=== PATIENT | male | born 1975 | race Caucasian/White ===

== ENCOUNTER 2019-05-27 08:29 | Outpatient (RCR) | payer OTHER, SELFPAY ==
--- NOTE | 2019-05-27 17:08 | PT.OIE ---
Current Diagnoses Pain in left elbow (05/27/19) Visit Care Team Role Provider Type James Hernadez MD Attending Provider Non-Staff Family Provider Primary Care Provider Specialty: Medical Address: [address] [place] [address], [phone] Email: Physical Therapy Initial Evaluation PT-OP-A Visit Information Start: 05/24/19 17:37 Freq: Status: Active Protocol: Document 05/27/19 09:05 LRN (Rec: 05/27/19 10:10 LRN [id number]) Out-Patient Physical Therapy Visit Information Visit Information Visit Type Initial Evaluation Visit Start Time 09:05 Visit Stop Time 09:53 Total Visit Minutes 48 Visit Number 1 Number of HUMAN RESOURCES EXECUTIVE Visits 0 Evaluation Information Evaluation Date 05/27/19 Precautions Precautions None PT-OP-B Current Condition Start: 05/24/19 17:37 Freq: Status: Active Protocol: Document 05/27/19 09:05 LRN (Rec: 05/27/19 10:10 LRN [id number]) Current Condition History of Current Condition Onset Date 1 month ago Current Complaints L lateral elbow: chronic L elbow pain, can't get comfortable at night History of Current Condition Tennis elbow a year ago for 5- 6 months, it went away on its own, then one month ago was tightening a bolt with fingertips and felt a shock in the L lateral elbow and persistent paint that was similar to last episode. 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 Pain is intermittent in nature. His pain is worse at night and causes aching in any position he puts his arm; therefore he is constantly moving the arm to be comfortable. He wakes 3 -4 times a night. Prior Treatments and Tests Not taking anything. Future Testing and Treatments Planned Can't remember the follow up, has an option of doing an injection. Treatment Goals Patient/Caregiver Goals Goal is to get a wrist strap and to alleviate the pain. 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 Current Functional Impairments (Reported) Functional Limitations- ADL's Limited with gripping, sleeping, dressing (socks, pants) . Pain mainly using fingers when gripping. 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 Personal Factors Other Personal Factors That May Effect Construction work. Therapy/Recovery Farm work. PT-OP-C Subjective Start: 05/24/19 17:37 Freq: Status: Active Protocol: Document 05/27/19 09:05 LRN (Rec: 05/27/19 10:33 LRN [id number]) Patient Questionnaires Upper Extremity Functional Scale UEFS Score 45.45 Upper Extremity Functional Scale 40 to 59% Impaired (Score 32- Impairment 47) OP-PT Pain Assessment Pain Assessment Grid Paper Pain Assessment Grid Completed Yes Location L lateral epicondyle Pain Location Details L lateral epicondyle and wrist extensor muscle bellies Intensity 4 Scale Used Numeric (1 - 10) Description Aching,Sharp,Stabbing Description- Other Bruise feeling Frequency Intermittent Pain Duration Variable Radiating Location Into upper forearm muscles Pain Aggravating Factors ADL's,Activity,Lifting Other Pain Aggravating Factors Static prolonged positioning. Other Pain Alleviating Factors Moving out of static position. PT-OP-H Neuro Start: 05/24/19 17:37 Freq: Status: Active Protocol: Document 05/27/19 09:05 LRN (Rec: 05/27/19 10:33 LRN [id number]) Sensation Evaluation Gross Sensation Gross Sensation WNL PT-OP-J Posture/Palpation/Skin Start: 05/24/19 17:37 Freq: Status: Active Protocol: Document 05/27/19 09:05 LRN (Rec: 05/27/19 10:33 LRN [id number]) Posture Evaluation Comments Posture Comments Atrophy of the non-dominant L forearm and thenar eminence is mildly visible. Palpation Assessment Location L cervical paraspinals Palpation Location L cervical paraspinals Palpation Findings Soft Tissue Tightness L Wrist extensor tendons Palpation Location Proximal wrist extensor tendons Palpation Findings Tenderness L lateral epicondyle Palpation Location L lateral epicondyle Palpation Findings Tenderness PT-OP-K Range of Motion Start: 05/24/19 17:37 Freq: Status: Active Protocol: Document 05/27/19 09:05 LRN (Rec: 05/27/19 15:28 LRN [id number]) Cervical Spine Range of Motion Cervical Spine Active Percentage Testing Position Sitting Comments All Cervical ROM is WNL without pain. Elbow/Forearm Range of Motion Elbow/Forearm Right Active Elbow/Forearm ROM WFL Yes Left Active Elbow/Forearm ROM WFL Yes Wrist Goniometric Range of Motion Wrist Right Flexion Active (degrees) 75 Extension Active (degrees) 60 Left Flexion Active (degrees) 75 Extension Active (degrees) 58 ROM Limitations Comments Ulnar Deviation and Radial Deviation are WNL without pain . Finger Goniometric Range of Motion Finger ROM Limitations Comments No mobility limitations, but pain felt at end range of motion with finger flexion at DIP and PIP joints. PT-OP-L Special Tests Start: 05/24/19 17:37 Freq: Status: Active Protocol: Document 05/27/19 09:05 LRN (Rec: 05/27/19 15:28 LRN [id number]) Special Tests Cervical Spine Special Tests Foraminal Compression Test Results negative Elbow Special Tests Lateral Epicondylitis Flexed Test Results L elbow: No pain elicited Lateral Epicondylitis Extended Test Results L elbow: Pain elicited. PT-OP-M Strength Start: 05/24/19 17:37 Freq: Status: Active Protocol: Document 05/27/19 09:05 LRN (Rec: 05/27/19 15:28 LRN [id number]) Elbow/Forearm Strength Elbow and Forearm Manual Muscle Testing Right Reason Not Measured WFL Left Reason Not Measured WFL Wrist Strength Wrist Manual Muscle Testing Right Reason Not Measured WFL Left Reason Not Measured WFL Finger/Thumb Strength Finger Manual Muscle Testing Thumb Reason Not Measured WFL Left Second Reason Not Measured WFL Left Third Reason Not Measured WFL Left Fourth Flexion (fingers C8) 3+ Fair+ Extension (thumb C8) 4+ Good+ Adduction 3+ Fair+ Abduction (fingers T1) 5 Normal Left Fifth Flexion (fingers C8) 3+ Fair+ Extension (thumb C8) 4+ Good+ Adduction 3+ Fair+ Abduction (fingers T1) 5 Normal Hand Parking Garage Manager/Pinch Strength Hand Dominance Hand Dominance Right Hand Strength Right Parking Garage Manager (lbs) 132 Comments Parking Garage Manager Strength Norm for 40-44 yr olds is 117# Pinch Norm for 40-44 yr olds is 11.7 kg Tip Pinch (kgs): Right 4th digit: 4 3rd digit: 3 2nd digit: 7 Left Parking Garage Manager (lbs) 70 Comments Parking Garage Manager strength above is painfree. Max grievance coordinator strength is 92.6# Norm for 40-44 yr olds is 113# Pinch Norm for 40-44 yr olds is 11.4 kg Tip Pinch (kgs): Left 4th digit: 3 3rd digit: 3 2nd digit: 9.8 Pinch Norm for 40-44 yr olds is PT-OP-Q Treatments Start: 05/24/19 17:37 Freq: Status: Active Protocol: Document 05/27/19 09:05 LRN (Rec: 05/27/19 15:28 LRN [id number]) Self-Care/Home Management Treatment Education Patient Education Pain Management Activities Self-Care/Home Management Activities Discussed self care of L elbow and routine. Rest, stretch, ice, use of elbow strap when working and ice afterwards. Goal is to be painfree. PT-OP-R Modalities Start: 05/24/19 17:37 Freq: Status: Active Protocol: Document 05/27/19 09:05 LRN (Rec: 05/27/19 15:28 LRN [id number]) Other Unlisted Modality Treatment Laser Name of Modality Laser Duration (Minutes) 1 Body Position Sitting Parameters Muscle/tendons: Chronic pulsed PT-OP-T Assessment and Plan Start: 05/24/19 17:37 Freq: Status: Active Protocol: Document 05/27/19 09:05 LRN (Rec: 05/27/19 15:28 LRN [id number]) Physical Therapy Assessment Rehab Potential Rehabilitation Potential Good Evaluation Complexity Number of Personal Factors/Comorbidities 1-2 Number of Body Systems Impaired 4 or More Clinical Presentation at Evaluation Evolving Impairments Impairments Activity Tolerance,Pain,Soft Tissue Mobility,Strength Goals Four Impairment Functionally limited per UE Quick DASH score of 45.45 Intermediate Goal (LTG) Pt will show improved function per improved UE Quick DASH score no greater than 25. LTG Duration 07/22/19 Three Impairment Interrupted sleep at night 3-4 times a night. Cellophane Wrapping Examiner Goal (LTG) Pt will be able to sleep through the night without pain . LTG Duration 07/22/19 Two Impairment Intermittent pain rated 4/10. Short Term Goal (STG) Decrease pain to 0/10 with AROM of wrist and fingers. STG Duration 06/28/19 Intermediate Goal (LTG) Pt will be able to work without pain wearing a forearm strap. LTG Duration 07/22/19 One Impairment Lacks appropriate self care program. Intermediate Goal (LTG) Pt will be independent in a self care HEP. LTG Duration 07/22/19 Assessment Summary Assessment Pt presents with L lateral epicondylitis and soft tissue dysfunction of the L wrist extensors with decreased strength and tolerance to activity and use. The pt responded well to protective pressure applied across the wrist extensor muscle bellies; therefore a forearm wrist strap would be beneficial for the pt in progressing his healing. He does not appear to have cervical involvement but the pt did report occasional pain within the last month in the cervical spine; therefore this will be monitored. The pt will benefit from skilled physical therapy 2x/week and one weekly session at 3x/week for iontophoresis treatment if you agree, to eliminate pain, improve painfree mobility and strength and for placement on a self care HEP. Iontophoresis will start once the plan of care is returned. Physical Therapy Plan Frequency and Duration Frequency of Treatment 3x/Week Plan of Care Start Date 05/27/19 Plan of Care End Date 07/22/19 Therapeutic Interventions Therapeutic Interventions Home Exercise Program,Joint Mobilizations,Manual Therapy, Patient/Caregiver Education, Self-Care/Home Management,Soft Tissue Mobilization,Taping, Therapeutic Exercises Modalities Cold Pack/Ice Massage,Hot Packs,Iontophoresis,Ultrasound Other Therapeutic Interventions Iontophoresis with 4mg/mL of Dexamethasone w/Sodium Phosphate. Next Visit Focus/Plan Next Note Type Treatment Note Next Visit Plan Assess response to laser therapy, check upper limb tension, start Iontophoresis for 3x/week for the first week , then 2x/week afterwards when POC has returned. Start Ultrasound, STM, wrist/elbow ROM, end K-tape. Initiate strengthening for painfree elbow, wrist, finger exercises . End cryotherapy.
--- NOTE | 2019-08-02 17:14 | PT.OPDS ---
Current Diagnoses Pain in left elbow (05/27/19) Visit Care Team Role Provider Type James Hernadze MD Attending Provider Non-Staff Family Provider Primary Care Provider Specialty: Medical Address: [address] [place] [address], [phone] Email: Visit Number Visit Number 1 Discharge Summary PT-OP-B Current Condition Start: 05/24/19 17:37 Freq: Status: Active Protocol: Document 05/27/19 09:05 LRN (Rec: 05/27/19 10:10 LRN [id number]) Current Condition History of Current Condition Onset Date 1 month ago Current Complaints L lateral elbow: chronic L elbow pain, can't get comfortable at night History of Current Condition Tennis elbow a year ago for 5- 6 months, it went away on its own, then one month ago was tightening a bolt with fingertips and felt a shock in the L lateral elbow and persistent paint that was similar to last episode. 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 Pain is intermittent in nature. His pain is worse at night and causes aching in any position he puts his arm; therefore he is constantly moving the arm to be comfortable. He wakes 3 -4 times a night. Prior Treatments and Tests Not taking anything. Future Testing and Treatments Planned Can't remember the follow up, has an option of doing an injection. Treatment Goals Patient/Caregiver Goals Goal is to get a wrist strap and to alleviate the pain. 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 Current Functional Impairments (Reported) Functional Limitations- ADL's Limited with gripping, sleeping, dressing (socks, pants) . Pain mainly using fingers when gripping. 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 Personal Factors Other Personal Factors That May Effect Construction work. Therapy/Recovery Farm work. PT-OP-T Assessment and Plan Start: 05/24/19 17:37 Freq: Status: Active Protocol: Document 08/02/19 17:11 LRN (Rec: 08/02/19 17:14 LRN [id number]) Physical Therapy Assessment Goals Four Impairment Functionally limited per UE Quick DASH score of 45.45 Fdc Goal (LTG) Pt will show improved function per improved UE Quick DASH score no greater than 25. LTG Duration 07/22/19 Three Impairment Interrupted sleep at night 3-4 times a night. Audio Recording Engineer Goal (LTG) Pt will be able to sleep through the night without pain . LTG Duration 07/22/19 Two Impairment Intermittent pain rated 4/10. Short Term Goal (STG) Decrease pain to 0/10 with AROM of wrist and fingers. STG Duration 06/28/19 Audio Recording Engineer Goal (LTG) Pt will be able to work without pain wearing a forearm strap. LTG Duration 07/22/19 One Impairment Lacks appropriate self care program. Fdc Goal (LTG) Pt will be independent in a self care HEP. LTG Duration 07/22/19 Assessment Summary Assessment Pt was seen for an initial evaluation on 05/27/19, then requested discharge on . Goals not met. Pt self discharged without attending therapy. Physical Therapy Plan Discharge Physical Therapy Discharge Reasons Patient Request Discharge Comments Thank you for your referral.
--- NOTE | 2019-08-06 15:52 | PT.OPDS ---
Current Diagnoses Pain in left elbow (05/27/19) Visit Care Team Role Provider Type James Hernadez MD Attending Provider Non-Staff Family Provider Primary Care Provider Specialty: Medical Address: [address] [place] [address], [phone] Email: Visit Number Visit Number 1 Discharge Summary PT-OP-B Current Condition Start: 05/24/19 17:37 Freq: Status: Active Protocol: Document 05/27/19 09:05 LRN (Rec: 05/27/19 10:10 LRN [id number]) Current Condition History of Current Condition Onset Date 1 month ago Current Complaints L lateral elbow: chronic L elbow pain, can't get comfortable at night History of Current Condition Tennis elbow a year ago for 5- 6 months, it went away on its own, then one month ago was tightening a bolt with fingertips and felt a shock in the L lateral elbow and persistent paint that was similar to last episode. 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 Pain is intermittent in nature. His pain is worse at night and causes aching in any position he puts his arm; therefore he is constantly moving the arm to be comfortable. He wakes 3 -4 times a night. Prior Treatments and Tests Not taking anything. Future Testing and Treatments Planned Can't remember the follow up, has an option of doing an injection. Treatment Goals Patient/Caregiver Goals Goal is to get a wrist strap and to alleviate the pain. 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 Current Functional Impairments (Reported) Functional Limitations- ADL's Limited with gripping, sleeping, dressing (socks, pants) . Pain mainly using fingers when gripping. 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 Personal Factors Other Personal Factors That May Effect Construction work. Therapy/Recovery Farm work. PT-OP-T Assessment and Plan Start: 05/24/19 17:37 Freq: Status: Active Protocol: Document 08/02/19 17:11 LRN (Rec: 08/02/19 17:14 LRN [id number]) Physical Therapy Assessment Goals Four Impairment Functionally limited per UE Quick DASH score of 45.45 Shelter Goal (LTG) Pt will show improved function per improved UE Quick DASH score no greater than 25. LTG Duration 07/22/19 (GOAL NOT MET, EARLY DC) Three Impairment Interrupted sleep at night 3-4 times a night. Hall Manager Goal (LTG) Pt will be able to sleep through the night without pain . LTG Duration 07/22/19 (GOAL NOT MET, EARLY DC) Two Impairment Intermittent pain rated 4/10. Short Term Goal (STG) Decrease pain to 0/10 with AROM of wrist and fingers. STG Duration 06/28/19 (GOAL NOT MET, EARLY DC) Hall Manager Goal (LTG) Pt will be able to work without pain wearing a forearm strap. LTG Duration 07/22/19 (GOAL NOT MET, EARLY DC) One Impairment Lacks appropriate self care program. Hall Manager Goal (LTG) Pt will be independent in a self care HEP. LTG Duration 07/22/19 (GOAL NOT MET, EARLY DC) Assessment Summary Assessment Pt was seen for an initial evaluation on 05/27/19, then requested discharge on . Goals not met. Pt self discharged without attending therapy. Physical Therapy Plan Discharge Physical Therapy Discharge Reasons Patient Request Discharge Comments Thank you for your referral.
== END 2019-05-28 13:00 ==
LOC: PHYS 08:29
PROVIDERS: Family Provider Specialist; PCP Specialist; Visit Provider Specialist
DX: M25.522 Pain in left elbow (principal)
CPT/HCPCS: 97161; 97535

== ENCOUNTER → 2020-06-16 14:05 | Outpatient (CLI) | payer OTHER, SELFPAY ==
[2020-06-16 14:49] LABS: COVID19 -Nasal RAPID POSITIVE (Negative)
== END ==
PROVIDERS: Family Provider Specialist; PCP Specialist; Visit Provider Physician Assistant
DX: U07.1 COVID-19 (principal)
CPT/HCPCS: 87635

== ENCOUNTER 2020-07-04 12:00 | Emergency (ER) | payer OTHER, SELFPAY ==
[2020-07-04] VITALS (9 sets, daily range): BP systolic 133–162; BP diastolic 73–97; PULSE 66–91; RESP 15–16; TEMP 36.6–36.9; O2SAT 95–98; BMI 26.4
--- NOTE | 2020-07-04 13:41 | ED_ITS ---
HPI - Headache General Chief Complaint: Headache Stated Complaint: covid+ 2 weeks ago/severe headaches/vomiting Time Seen by Provider: 07/04/20 12:08 Mode of arrival: Ambulatory Limitations: no limitations History of Present Illness HPI Narrative: Patient is a 44-year-old male who presents with headache and left ear pain ongoing for number of weeks. Had about 6 weeks ago he was diagnosed with a sinus infection placed on Augmentin. He started having some ear discomfort he seen by ENT at that time was told to finish antibiotics there was fluid behind his ear. He then unfortunately was diagnosed with COVID-19 on June 15. He quarantine for 14 days he was unable to follow-up due to COVID. He now is having worsening headache and pressure. He has been taking Excedrin he has taken Sudafed Mucinex and other cdyh-zjy-hqtuwey medications without any relief. Feels like he is having some hearing loss and continues to have tinnitus in his left ear. His headache has gotten quite bad as well he is having some photosensitivity. He has not had any fever or body aches. MD Complaint: headache Related Data Home Medications Medication Instructions Recorded Confirmed rosuvastatin 5 mg tablet 5 mg PO DAILY 06/16/20 06/16/20 Allergies Allergy/AdvReac Type Severity Reaction Status Date / Time No Known Drug Allergies Allergy Verified 07/04/20 12:16 Review of Systems Review of Systems ROS Unobtainable: All systems reviewed & are unremarkable except as noted in HPI and below Constitutional Constitutional: Reports body ache(s), Reports fatigue and Denies frequent falls ENT Ears, Nose, Mouth, and Throat: Reports as per HPI, Denies dizziness, Reports tinnitus (Left ear) and Reports sinus pain (Now resolved) Cardiovascular Cardiovascular: Denies chest pain, Denies irregular heart rhythm, Denies lightheadedness, Denies palpitations, Denies dyspnea, Denies dyspnea on exertion and Denies orthopnea Respiratory Respiratory: Denies cough, Denies dyspnea, Denies dyspnea on exertion and Denies wheezing Gastrointestinal Gastrointestinal: Denies abdominal pain, Denies change in bowel habits, Denies diarrhea, Denies nausea and Denies vomiting Musculoskeletal Musculoskeletal: Denies back pain, Denies myalgias and Denies numbness Integumentary/Breasts Skin/Breast: Denies pruritus, Denies erythema, Denies rash and Denies wounds Neurologic Neurologic: Denies behavioral changes, Denies confusion, Denies dizziness, Denies frequent falls and Denies numbness Psychiatric Psychiatric: Denies behavioral changes and Denies confusion Endocrine Endocrine: Reports fatigue and Denies palpitations Allergic/Immunologic Allergic/Immunologic: Denies wheezing Patient History Medical History Cough COVID-19 Social History Smoking Status: Unknown if ever smoked Smoking Status: Unknown if ever smoked alcohol intake frequency: holidays/special occasions only Substance Use Type: does not use Exam Initial Vital Signs Initial Vital Signs: Vital Signs Temperature 98.5 F 07/04/20 12:10 Pulse Rate 83 07/04/20 12:10 Respiratory Rate 15 07/04/20 12:10 Blood Pressure 162/95 H 07/04/20 12:10 Pulse Oximetry 98 07/04/20 12:10 GENERAL: Appears uncomfortable HEENT: Head atraumatic,EOMI, pupils reactive, face symmetric, moist mucous membranes, no meningeal signs EARS: Tympanic membranes visualized, no erythema or bulging, no hemotympanum is not tender over mastoids CARDIOVASCULAR: Regular rate and rhythm without murmurs, rubs or gallops. RESPIRATORY: Breath sounds equal bilaterally, no wheezes rales or rhonchi. ABDOMEN: Soft, nontender. Normoactive bowel sounds all 4 quadrants. No guarding or rebound. EXTREMITIES: Normal range of motion, no clubbing or edema. Neurovascularly in tact NEUROLOGICAL: Alert and oriented x4.Normal gait and speech. Cranial nerves II through XII grossly intact. Cake Decorator strength equal bilaterally SKIN: Warm, dry, no laceration, no petechiae, no rashes or lesions. Course Orders Ordered: ED Orders 07/04/20 12:25 Complete Blood Count AUTO DIFF Stat Comprehensive Metabolic Panel Stat 07/04/20 13:41 CT head/brain wo con Stat CT mastoid temporal Stat Discontinued Medications Diphenhydramine HCl (Diphenhydramine 50 Mg/Ml Vial) 25 mg IV NOW ONE Stop: 07/04/20 13:42 Last Admin: 07/04/20 13:49 Dose: 25 mg Documented by: ASHLY Sodium Chloride (Normal Saline 0.9%) 1,000 mls @ 1,000 mls/hr IV BOLUS ONE Stop: 07/04/20 14:40 Last Infusion: 07/04/20 15:34 Dose: 0 mls/hr Documented by: Admin: 07/04/20 13:51 Dose: 1,000 mls/hr Documented by: ASHLY Ketorolac Tromethamine (Ketorolac 60 Mg/2 Ml Vial) 30 mg IV NOW ONE Stop: 07/04/20 13:42 Last Admin: 07/04/20 13:50 Dose: 30 mg Documented by: ASHLY Prochlorperazine (Prochlorperazine 10 Mg/2 Ml Vial) 10 mg IV NOW ONE Stop: 07/04/20 13:42 Last Admin: 07/04/20 13:49 Dose: 10 mg Documented by: ASHLY Vital Signs Vital signs: Vital Signs - 8 hr 07/04/20 12:10 07/04/20 13:00 07/04/20 13:30 Temperature 98.5 F Pulse Rate 83 66 81 Respiratory Rate 15 Blood Pressure 162/95 H Pulse Oximetry 98 96 97 07/04/20 13:49 07/04/20 14:00 07/04/20 14:33 Temperature Pulse Rate 70 77 82 Respiratory Rate Blood Pressure 162/97 H Pulse Oximetry 96 95 07/04/20 15:02 07/04/20 15:30 07/04/20 15:42 Temperature 97.8 F Pulse Rate 89 83 91 H Respiratory Rate 16 Blood Pressure 133/73 134/78 Pulse Oximetry 96 96 97 MDM - Headache Lab Data Attestation: I reviewed the patient's lab results. Result diagrams: 07/04/20 12:25 07/04/20 12:25 Labs: Lab Results 07/04/20 07/04/20 Range/Units 12:25 12:25 WBC 16.4 H (4.5-11.0) X10^3/uL RBC 5.53 (4.5-5.9) X10^6/uL Hgb 16.2 (13.5-17.5) g/dL Hct 49.1 (41-53) % MCV 88.8 (80-100) fL MCH 29.2 (26-34) PG MCHC 32.9 (30-36) % RDW 13.7 (11.6-14.8) % Plt Count 702 H (150-400) X10^3/uL Neut % (Auto) 59.0 (50-75) % Lymph % (Auto) 25.9 (25-40) % [place] % (Auto) 13.6 (3-14) % Eos % (Auto) 0.7 L (2-4) % Baso % (Auto) 0.8 (0-2) % Neut # (Auto) 9700 H (5397-5331) /uL Lymph # (Auto) 4200 (9752-4526) /uL Dor[place] # (Auto) 2200 H (0-900) /uL Eos # (Auto) 100 (0-450) /uL Baso # (Auto) 100 (0-100) /uL Sodium 134 L (137-145) mmol/L Potassium 4.3 (3.4-5.1) mmol/L Chloride 102 (98-107) mmol/L Carbon Dioxide 29 (22-32) mmol/L BUN 19 (9-20) mg/dL Creatinine 0.65 L (0.66-1.25) mg/dL Estimated GFR > 60.0 (>60) mL/min BUN/Creatinine Ratio 29.2 H (6-22) Glucose 116 H (70-100) mg/dL Calcium 9.6 (8.4-10.2) mg/dL Total Bilirubin 0.7 (0.2-1.3) mg/dL AST 46 (17-59) IU/L ALT 72 H (<50) IU/L Alkaline Phosphatase 101 (38-126) U/L Total Protein 8.0 (6.3-8.2) g/dL Albumin 4.4 (3.5-5.0) g/dL Globulin 3.6 (1.7-4.1) g/dL Albumin/Globulin Ratio 1.2 (1.0-2.8) Imaging Data CT scan - head: Radiologist's Impression: PROCEDURE: CT HEAD/BRAIN WO CON INDICATIONS: headache TECHNIQUE: Noncontrast 4.5 mm thick angled axial sections acquired from the foramen magnum to the vertex, with coronal and sagittal reformats. For radiation dose reduction, the following was used: automated exposure control, adjustment of mA and/or kV according to patient size. COMPARISON: None. FINDINGS: Image quality: Excellent. CSF spaces: Basal cisterns are patent. No extra-axial fluid collections. Ventricles are normal in size and shape. Incidental note of a prominent cisterna magna. Brain: No midline shift. No intracranial masses or hemorrhage. Romero-white matter interface is normal. Skull and face: Calvarium and visualized facial bones are intact, without suspicious lesions. Scalp: Nonspecific soft tissue edema noted within the scalp of the right occ iput. Sinuses: Visualized sinuses and mastoids are clear. IMPRESSION: No acute intracranial abnormality. Nonspecific soft tissue edema noted within the scalp of the right occiput. Recommend clinical correlation. Dictated by: Vini Uribe D.O. on 07/04/2020 at 13:57 Approved by: Vini Uribe D.O. on 07/04/2020 at 14:01 CT MAstoids: Radiologist's Impression: PROCEDURE: CT MASTOID TEMPORAL INDICATIONS: Tinnitus and pain for weeks COMPARISON: Same-day CT head TECHNIQUE: Noncontrast 0.6 mm thick direct axial and coronal sections acquired through each temporal bone separately. FINDINGS: Image quality: Excellent. RIGHT: External auditory canal: Canal has a normal appearance. Middle ear: The middle ear structures, including the ossicles and tympanic membrane, appear normal. No abnormal fluid or soft tissue density. Inner ear: Inner ear is normally formed and appears unremarkable. Facial nerve appears normal throughout is course. Mastoids: Mastoid air cells are clear. LEFT: External auditory canal: Canal has a normal appearance. Middle ear: The middle ear structures, including the ossicles and tympanic membrane, appear normal. No abnormal fluid or soft tissue density. Inner ear: Inner ear is normally formed and appears unremarkable. Facial nerve appears normal throughout its course. Mastoids: Mastoid air cells are clear. MISCELLANEOUS: Visualized surrounding bones appear unremarkable. Visualized intracranial structures, including the cerebellopontine angle cisterns, appear normal. Is minimal mucosal thickening of the maxillary sinuses. IMPRESSION: Unremarkable appearance of the temporal bones. Dictated by: Vini Uribe D.O. on 07/04/2020 at 14:02 [facility] Narrative Medical decision making narrative: Patient's pain is significantly better after migraine treatment. He has no sign of meningitis he does have mildly elevated leukocytosis no fever. He is still on Augmentin. He is afebrile. At this time it CT does not show any sign of mastoiditis head CT is negative overall feeling better. Recommend outpatient follow-up with ENT. No focal deficits. Discharge Plan Departure Patient Disposition: Home Clinical Impression: Migraine Qualifiers: Migraine type: unspecified Status migrainosus presence: without status migrainosus Intractability: not intractable Qualified Code(s): G43.909 - Migraine, unspecified, not intractable, without status migrainosus Instructions: DI for Migraine Activity Restrictions/Additional Instructions: *You have been diagnosed with migraine headache *What to do: Increase fluid intake, rest. Your WBC is mildly elevated at 16 I think this is probably related to pain however with your history in needs to be closely followed and be sure it is coming down. You also need to follow up ag ain with Dr. Canales ENT *Continue to take medications as directed Ibuprofen 800 mg every 8 hours if needed for [id number] pain *Follow up with your primary care provider in 2-3 days *Return to ER if you should have loss of hearing, persistent ringing, fever, pain behind ear or any new, worsening or concerning symptoms Prescriptions: No Action rosuvastatin 5 mg tablet 5 mg PO DAILY RF: 0 Referrals: James Hernadez MD [Primary Care Provider] -
[2020-07-04] MEDS: PROCHLORPERAZINE 10 MG/2 ML VIAL IV (13:49)
[2020-07-04] MEDS: diphenhydrAMINE 50 MG/ML VIAL 25 MG IV (13:49)
[2020-07-04] MEDS: KETOROLAC 60 MG/2 ML VIAL 30 MG IV (13:50)
[2020-07-04] MEDS: SODIUM CHLORIDE 0.9% 1,000 ML 1000 ML IV (13:51)
[2020-07-04 13:54] LABS: Add Manual Diff / Slide Review NO; Basophils Absolute Auto 100 /uL (0-100); Basophils Percent Auto 0.8 % (0-2); Eosinophils Absolute Auto 100 /uL (0-450); Eosinophils Percent Auto 0.7 % (2-4); Hematocrit 49.1 % (41-53); Hemoglobin 16.2 g/dL (13.5-17.5); Lymphocytes Absolute Auto 4200 /uL (1100-4500); Lymphocytes Percent Auto 25.9 % (25-40); Mean Corpuscular HGB Conc 32.9 % (30-36); Mean Corpuscular Hemoglobin 29.2 PG (26-34); Mean Corpuscular Volume 88.8 fL (80-100); Monocytes Absolute Auto 2200 /uL (0-900); Monocytes Percent Auto 13.6 % (3-14); Neutrophils Absolute Auto 9700 /uL (1500-7000); Red Blood Cell Count 5.53 X10^6/uL (4.5-5.9); Red Cell Distribution Width 13.7 % (11.6-14.8); White Blood Cell Count 16.4 X10^3/uL (4.5-11.0)
[2020-07-04 13:55] LABS: Alanine Aminotransferase 72 IU/L (<50); Albumin 4.4 g/dL (3.5-5.0); Albumin Globulin Ratio 1.2 (1.0-2.8); Alkaline Phosphatase 101 U/L (38-126); Aspartate Aminotransferase 46 IU/L (17-59); BUN Creatinine Ratio 29.2 (6-22); Bilirubin Total 0.7 mg/dL (0.2-1.3); Blood Urea Nitrogen 19 mg/dL (9-20); Calcium 9.6 mg/dL (8.4-10.2); Carbon Dioxide 29 mmol/L (22-32); Chloride 102 mmol/L (98-107); Estimated Glomerular Filt Rate > 60.0 mL/min (>60); Globulin 3.6 g/dL (1.7-4.1); Glucose 116 mg/dL (70-100); HEMOLYSIS < 15 (0-50); Potassium 4.3 mmol/L (3.4-5.1); Sodium 134 mmol/L (137-145)
[2020-07-04 14:20] LABS: Platelet Count 702 X10^3/uL (150-400)
== END 2020-07-04 15:46 | disposition home or self-care (01) ==
PROVIDERS: Emergency Provider Emergency Medicine; Family Provider Specialist; PCP Specialist
DX: G43.909 Migraine, unspecified, not intractable, without status migrainosus (principal); H92.02 Otalgia, left ear
CPT/HCPCS: 36415; 70450; 70480; 80053; 85025; 96361; 96374; 96375; 99284; J0780; J1200; J1885

== ENCOUNTER 2021-04-15 03:41 | Emergency (ER) | payer OTHER, SELFPAY ==
[2021-04-15 03:52] VITALS: BP 143/92; PULSE 79; RESP 23; TEMP 36.4; O2SAT 94; BMI 26.4
[2021-04-15] MEDS: MORPHINE 4 MG/ML INJ IV ×2 (04:02→07:41)
--- NOTE | 2021-04-15 04:02 | ED_ITS ---
HPI - Abdominal Pain <Keshawn Price MD - Last Filed: 04/15/21 18:04> General Chief Complaint: Abdominal Pain Stated Complaint: states bowel obstruction Time Seen by Provider: 04/15/21 03:54 Source: patient and family Mode of arrival: Ambulatory Limitations: no limitations History of Present Illness HPI narrative: Patient here with significant other for complaints of lower abdominal discomfort starting yesterday. He has had nausea and vomiting. Had diarrhea as well. 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 Patient followed by Kelsey vallejo. History of bowel resections in the past. History of bowel obstructions. Patient scheduled for CT scan of chest and ab domen pelvis in 2 days for monitoring ordered by his providers. Related Data Home Medications Medication Instructions Recorded Confirmed rosuvastatin 5 mg tablet 5 mg PO DAILY 06/16/20 06/16/20 Previous Rx's Medication Instructions Recorded hydrocodone 5 mg-acetaminophen 325 1 tab PO Q6H PRN #6 tab 04/15/21 mg tablet ondansetron 4 mg disintegrating 4 mg PO Q6H PRN #10 tab 04/15/21 tablet Allergies Allergy/AdvReac Type Severity Reaction Status Date / Time No Known Drug Allergies Allergy Verified 07/04/20 12:16 Review of Systems <Keshawn Price MD - Last Filed: 04/15/21 18:04> Review of Systems Narrative: GENERAL: Denies chills, fatigue, malaise, fever, sweats. HEENT: Denies sinus pain, ear pain, sore throat RESPIRATORY: Denies dyspnea, cough CARDIOVASCULAR: Denies chest pain, palpitations GASTROINTESTINAL: Complains nausea, vomiting, abdominal pain : Denies dysuria, frequency, hematuria MUSCULOSKELETAL: denies muscle or bony pain SKIN: Denies rash, skin lesions NEUROLOGIC: Denies weakness, numbness ROS Unobtainable: All systems reviewed & are unremarkable except as noted in HPI and below Patient History <Keshawn Price MD - Last Filed: 04/15/21 18:04> Medical History Cough COVID-19 Social History Smoking Status: Never smoker Smoking Status: Never smoker alcohol intake frequency: a few times a month Substance Use Type: does not use Exam <Keshawn Price MD - Last Filed: 04/15/21 18:04> Narrative Exam Narrative: GENERAL: in no distress, not toxic not dyspneic HEAD: Normocephalic. EYES: Pupils equal round No scleral icterus. No injection no discharge ENT: Mucous membranes moist. NECK: Trachea midline. CARDIOVASCULAR: Regular rate and rhythm without murmurs RESPIRATORY: Clear to auscultation. Breath sounds equal bilaterally. No wheezes, rales, or rhonchi. GASTROINTESTINAL: Abdomen soft, flat, bowel sounds present, diffuse tenderness, no peritoneal signs EXTREMITIES: No gross deformities. BACK: No flank tenderness. NEURO: AOx4. SKIN: Warm and dry PSYCH: Not anxious, is cooperative Initial Vital Signs Initial Vital Signs: Vital Signs Temperature 97.6 F 04/15/21 03:52 Pulse Rate 79 04/15/21 03:52 Respiratory Rate 23 04/15/21 03:52 Blood Pressure 143/92 H 04/15/21 03:52 Pulse Oximetry 94 04/15/21 03:52 <Evaristo Lay DO - Last Filed: 04/15/21 07:48> Initial Vital Signs Initial Vital Signs: Vital Signs Temperature 97.6 F 04/15/21 03:52 Pulse Rate 79 04/15/21 03:52 Respiratory Rate 23 04/15/21 03:52 Blood Pressure 143/92 H 04/15/21 03:52 Pulse Oximetry 94 04/15/21 03:52 Course <Keshawn Price MD - Last Filed: 04/15/21 18:04> Course Course Narrative: 7:00 a.m. sign out to dr lay, reassess for pain control possible reimaging with x-ray or CT for improvement Orders Ordered: Discontinued Medications Sodium Chloride (Normal Saline 0.9%) 1,000 mls @ 1,000 mls/hr IV BOLUS ONE Stop: 04/15/21 04:56 Last Infusion: 04/15/21 05:33 Dose: 0 mls/hr Documented by: Admin: 04/15/21 04:03 Dose: 1,000 mls/hr Documented by: SHERYL Sodium Chloride (Normal Saline 0.9%) 1,000 mls @ 1,000 mls/hr IV BOLUS ONE Stop: 04/15/21 06:25 Last Infusion: 04/15/21 06:45 Dose: 0 mls/hr Documented by: Admin: 04/15/21 05:33 Dose: 1,000 mls/hr Documented by: MANJU Morphine Sulfate (Morphine 4 Mg/Ml Inj) 4 mg IV NOW ONE Stop: 04/15/21 03:56 Last Admin: 04/15/21 04:02 Dose: 4 mg Documented by: SHERYL Morphine Sulfate (Morphine 4 Mg/Ml Inj) 4 mg IV NOW ONE Stop: 04/15/21 07:24 Last Admin: 04/15/21 07:41 Dose: 4 mg Documented by: OLIVE Ondansetron HCl (Ondansetron 4 Mg/2 Ml Inj) 4 mg IV NOW ONE Stop: 04/15/21 03:58 Last Admin: 04/15/21 04:03 Dose: 4 mg Documented by: SHERYL Reevaluation(s) Reevaluation #1: Reviewed laboratory studies and x-ray results with patient and . Concerning for bowel obstruction. At this time he would desire to wait a little bit longer before CT imaging. He states he has had many CAT scans and would not like to pursue radiation exposure if possible. He states he has had spontaneous resolution of bowel obstruction in the past without surgery. At this time we will observe further in the emergency department, as of now we do not have any open beds for admission. Vital Signs Vital signs: Vital Signs - 8 hr 04/15/21 03:52 04/15/21 06:53 Temperature 97.6 F Pulse Rate 79 80 Respiratory Rate 23 14 Blood Pressure 143/92 H 126/64 Pulse Oximetry 94 99 <Evaristo Lay DO - Last Filed: 04/15/21 07:48> Orders Ordered: Discontinued Medications Sodium Chloride (Normal Saline 0.9%) 1,000 mls @ 1,000 mls/hr IV BOLUS ONE Stop: 04/15/21 04:56 Last Infusion: 04/15/21 05:33 Dose: 0 mls/hr Documented by: Admin: 04/15/21 04:03 Dose: 1,000 mls/hr Documented by: SHERYL Sodium Chloride (Normal Saline 0.9%) 1,000 mls @ 1,000 mls/hr IV BOLUS ONE Stop: 04/15/21 06:25 Last Infusion: 04/15/21 06:45 Dose: 0 mls/hr Documented by: Admin: 04/15/21 05:33 Dose: 1,000 mls/hr Documented by: MANJU Morphine Sulfate (Morphine 4 Mg/Ml Inj) 4 mg IV NOW ONE Stop: 04/15/21 03:56 Last Admin: 04/15/21 04:02 Dose: 4 mg Documented by: SHERYL Morphine Sulfate (Morphine 4 Mg/Ml Inj) 4 mg IV NOW ONE Stop: 04/15/21 07:24 Last Admin: 04/15/21 07:41 Dose: 4 mg Documented by: OLIVE Ondansetron HCl (Ondansetron 4 Mg/2 Ml Inj) 4 mg IV NOW ONE Stop: 04/15/21 03:58 Last Admin: 04/15/21 04:03 Dose: 4 mg Documented by: SHERYL Vital Signs Vital signs: Vital Signs - 8 hr 04/15/21 03:52 04/15/21 06:53 Temperature 97.6 F Pulse Rate 79 80 Respiratory Rate 23 14 Blood Pressure 143/92 H 126/64 Pulse Oximetry 94 99 MDM - Abdominal Pain <Keshawn Price MD - Last Filed: 04/15/21 18:04> Differential Diagnosis Differential diagnosis: Likely abdominal pain, constipation, diverticulitis, pancreatitis and small bowel obstruction Lab Data Result diagrams: 04/15/21 03:55 04/15/21 03:55 Labs: Lab Results 04/15/21 04/15/21 Range/Units 03:55 03:55 WBC 20.9 H (4.5-11.0) X10^3/uL RBC 5.15 (4.5-5.9) X10^6/uL Hgb 15.3 (13.5-17.5) g/dL Hct 46.0 (41-53) % MCV 89.3 (80-100) fL MCH 29.7 (26-34) PG MCHC 33.3 (30-36) % RDW 13.4 (11.6-14.8) % Plt Count 476 H (150-400) X10^3/uL Neut % (Auto) 87.7 H (50-75) % Lymph % (Auto) 8.5 L (25-40) % Todd % (Auto) 3.2 (3-14) % Eos % (Auto) 0.3 L (2-4) % Baso % (Auto) 0.3 (0-2) % Neut # (Auto) 52238 H (4198-9670) /uL Lymph # (Auto) 1800 (4359-0659) /uL Todd # (Auto) 700 (0-900) /uL Eos # (Auto) 100 (0-450) /uL Baso # (Auto) 100 (0-100) /uL Platelet Estimate Increased on smear Plt Morphology Comment . RBC Morphology Normal morphology Sodium 136 L (137-145) mmol/L Potassium 4.8 (3.4-5.1) mmol/L Chloride 102 (98-107) mmol/L Carbon Dioxide 22 (22-32) mmol/L BUN 20 (9-20) mg/dL Creatinine 0.66 (0.66-1.25) mg/dL Estimated GFR > 60.0 (>60) mL/min BUN/Creatinine Ratio 30.3 H (6-22) Glucose 169 H (70-100) mg/dL Calcium 10.2 (8.4-10.2) mg/dL Total Bilirubin 0.9 (0.2-1.3) mg/dL AST 35 (17-59) IU/L ALT 31 (<50) IU/L Alkaline Phosphatase 104 (38-126) U/L Total Protein 8.1 (6.3-8.2) g/dL Albumin 5.2 H (3.5-5.0) g/dL Globulin 2.9 (1.7-4.1) g/dL Albumin/Globulin Ratio 1.8 (1.0-2.8) Lipase 39 (23-300) U/L Imaging Data Abdominal x-ray: Radiologist's Impression: Air-fluid level within a dilated loop of bowel within the right upper quadrant and other scattered air-fluid levels within nondilated loops of small bowel. Findings are compatible with bowel obstruction. <Evaristo Lay DO - Last Filed: 04/15/21 07:48> Lab Data Labs: Lab Results 04/15/21 04/15/21 Range/Units 03:55 03:55 WBC 20.9 H (4.5-11.0) X10^3/uL RBC 5.15 (4.5-5.9) X10^6/uL Hgb 15.3 (13.5-17.5) g/dL Hct 46.0 (41-53) % MCV 89.3 (80-100) fL MCH 29.7 (26-34) PG MCHC 33.3 (30-36) % RDW 13.4 (11.6-14.8) % Plt Count 476 H (150-400) X10^3/uL Neut % (Auto) 87.7 H (50-75) % Lymph % (Auto) 8.5 L (25-40) % Todd % (Auto) 3.2 (3-14) % Eos % (Auto) 0.3 L (2-4) % Baso % (Auto) 0.3 (0-2) % Neut # (Auto) 11026 H (2122-0562) /uL Lymph # (Auto) 1800 (5000-2284) /uL Todd # (Auto) 700 (0-900) /uL Eos # (Auto) 100 (0-450) /uL Baso # (Auto) 100 (0-100) /uL Platelet Estimate Increased on smear Plt Morphology Comment . RBC Morphology Normal morphology Sodium 136 L (137-145) mmol/L Potassium 4.8 (3.4-5.1) mmol/L Chloride 102 (98-107) mmol/L Carbon Dioxide 22 (22-32) mmol/L BUN 20 (9-20) mg/dL Creatinine 0.66 (0.66-1.25) mg/dL Estimated GFR > 60.0 (>60) mL/min BUN/Creatinine Ratio 30.3 H (6-22) Glucose 169 H (70-100) mg/dL Calcium 10.2 (8.4-10.2) mg/dL Total Bilirubin 0.9 (0.2-1.3) mg/dL AST 35 (17-59) IU/L ALT 31 (<50) IU/L Alkaline Phosphatase 104 (38-126) U/L Total Protein 8.1 (6.3-8.2) g/dL Albumin 5.2 H (3.5-5.0) g/dL Globulin 2.9 (1.7-4.1) g/dL Albumin/Globulin Ratio 1.8 (1.0-2.8) Lipase 39 (23-300) U/L MDM Narrative Medical decision making narrative: Dr Lay: Received turned over from Dr. Crockett. Reviewed patient's history and physical and x-ray. Also introduced myself to him performed my own independent limited examination. Has had known history of small-bowel obstructions. The x-ray is very consistent with a small- bowel obstruction. Patient states that since his time here in the emergency department his symptoms have greatly improved. He would like to hold on CT scans for now. He is scheduled to have a CT scan next week for other issues. Had a long discussion with him regarding his symptoms. We discussed obtaining a CT scan of the mid in to the hospital for his presumed bowel obstruction. We discussed the risks and benefits of this. We also discussed the risks and benefits of being discharged home. He states that since he is feeling better he would like to be discharged home. He did express the understanding the risks and benefits of this. States that he lives close to the hospital in can return if his symptoms do worsen. He has had this in the past and states that frequently it does improve within 12 hours. He is alert oriented x3. GCS of 15. My opinion has capacity to make decisions. Will discharge home. Discharge Plan Departure Patient Disposition: Home Clinical Impression: Abdominal pain, Small bowel obstruction Instructions: DI for Small Bowel Obstruction Activity Restrictions/Additional Instructions: Your x-ray today and your physical exam is consistent with what we presume is a small-bowel obstruction. We had a discussion in the emergency department about obtaining a CT scan a being admitted to the hospital verses being discharged home with symptom control and returning if your symptoms worse. After this discussion you opted to be discharged home. I recommend a liquid diet until your symptoms have completely resolved. Return to the emergency department for any new or worsening symptoms Prescriptions: New ondansetron 4 mg tablet,disintegrating 4 mg PO Q6H PRN (Reason: nausea and vomiting) Qty: 10 RF: 0 hydrocodone-acetaminophen 5-325 mg tablet 1 tab PO Q6H PRN (Reason: pain) Qty: 6 RF: 0 No Action rosuvastatin 5 mg tablet 5 mg PO DAILY RF: 0 Referrals: James Hernadez MD [Primary Care Provider] -
[2021-04-15] MEDS: SODIUM CHLORIDE 0.9% 1,000 ML 1000 ML IV ×2 (04:03→05:33)
[2021-04-15] MEDS: ONDANSETRON 4 MG/2 ML INJ IV (04:03)
--- NOTE | 2021-04-15 04:09 | DI.RAD.S_ITS ---
PROCEDURE: XR ACUTE ABDOMEN SERIES INDICATIONS: Abdominal pain TECHNIQUE: One view chest and two views of the abdomen were acquired. COMPARISON: None. FINDINGS: Surgical changes and devices: Cholecystectomy clips. Left upper quadrant and left pelvic surgical clips. Multiple bowel anastomotic sutures project over the mid abdomen. Chest: Lungs are clear. Heart size is normal. No pleural effusions. No pneumoperitoneum. Abdomen: Dilated loop of bowel in the right mid abdomen which contains an air-fluid level. No suspicious calcifications. Visualized solid organ contours appear normal. Bones: No suspicious bony lesions. IMPRESSION: Dilated loop of bowel in the right mid abdomen with internal air-fluid level compatible with bowel obstruction. No acute cardiopulmonary disease process. Dictated by: Rayna Berg MD, PhD on 04/15/2021 at 8:10 Approved by: Rayna Berg MD, PhD on 04/15/2021 at 8:12
[2021-04-15 04:15] LABS: Basophils Absolute Auto 100 /uL (0-100); Basophils Percent Auto 0.3 % (0-2); Eosinophils Absolute Auto 100 /uL (0-450); Eosinophils Percent Auto 0.3 % (2-4); Hemoglobin 15.3 g/dL (13.5-17.5); Lymphocytes Absolute Auto 1800 /uL (1100-4500); Lymphocytes Percent Auto 8.5 % (25-40); Mean Corpuscular HGB Conc 33.3 % (30-36); Mean Corpuscular Hemoglobin 29.7 PG (26-34); Mean Corpuscular Volume 89.3 fL (80-100); Monocytes Absolute Auto 700 /uL (0-900); Monocytes Percent Auto 3.2 % (3-14); Neutrophils Absolute Auto 18300 /uL (1500-7000); Neutrophils Percent Auto 87.7 % (50-75); Platelet Count 476 X10^3/uL (150-400); Red Blood Cell Count 5.15 X10^6/uL (4.5-5.9); Red Cell Distribution Width 13.4 % (11.6-14.8); White Blood Cell Count 20.9 X10^3/uL (4.5-11.0)
[2021-04-15 04:17] LABS: Add Manual Diff / Slide Review SLIDE REVIEW
[2021-04-15 04:30] LABS: Alanine Aminotransferase 31 IU/L (<50); Albumin 5.2 g/dL (3.5-5.0); Albumin Globulin Ratio 1.8 (1.0-2.8); Alkaline Phosphatase 104 U/L (38-126); Aspartate Aminotransferase 35 IU/L (17-59); BUN Creatinine Ratio 30.3 (6-22); Bilirubin Total 0.9 mg/dL (0.2-1.3); Blood Urea Nitrogen 20 mg/dL (9-20); Calcium 10.2 mg/dL (8.4-10.2); Carbon Dioxide 22 mmol/L (22-32); Chloride 102 mmol/L (98-107); Estimated Glomerular Filt Rate > 60.0 mL/min (>60); Globulin 2.9 g/dL (1.7-4.1); Glucose 169 mg/dL (70-100); HEMOLYSIS 34 (0-50); Lipase 39 U/L (23-300); Potassium 4.8 mmol/L (3.4-5.1); Sodium 136 mmol/L (137-145); Total Protein 8.1 g/dL (6.3-8.2)
[2021-04-15 04:34] LABS: RBC Morphology Normal Morphology
[2021-04-15 04:36] LABS: Platelet Estimate Increased on smear
[2021-04-15 06:53] VITALS: BP 126/64; PULSE 80; RESP 14; O2SAT 99
[2021-04-15 08:05] VITALS: BP 128/72; PULSE 85; RESP 16; O2SAT 99
== END 2021-04-15 08:23 | disposition home or self-care (01) ==
PROVIDERS: Emergency Medicine; Emergency Provider Emergency Medicine; Family Provider Specialist; PCP Specialist
DX: K56.609 Unspecified intestinal obstruction, unspecified as to partial versus complete obstruction (principal); R10.30 Lower abdominal pain, unspecified; R11.2 Nausea with vomiting, unspecified
CPT/HCPCS: 74022; 80053; 83690; 85025; 96361; 96374; 96375; 96376; 99284; J2270; J2405

== ENCOUNTER 2021-04-27 04:46 | Observation (INO) | payer OTHER, SELFPAY ==
[2021-04-27] VITALS (12 sets, daily range): BP systolic 110–142; BP diastolic 67–82; PULSE 55–98; RESP 15–18; TEMP 36.4–36.9; O2SAT 94–97; BMI 25.7; BMI 26.7
--- NOTE | 2021-04-27 05:11 | DI.CT.S_ITS ---
PROCEDURE: CT ABDOMEN PELVIS W CON INDICATIONS: abdominal pain, history of bowel obstructions TECHNIQUE: After the administration of intravenous contrast, axial sections acquired from the lung bases to the pubic symphysis. Coronal and sagittal reformats were performed. For radiation dose reduction, the following was used: automated exposure control, adjustment of mA and/or kV according to patient size. COMPARISON: [facility], ABDOMEN ACUTE SERIES, 02/05/2008, 9:26. [facility], ABDOMEN ACUTE SERIES, 10/12/2013, 6:54. [facility], ABDOMEN ACUTE SERIES, 09/18/2014, 1:14. [facility], XR ACUTE ABDOMEN SERIES, 04/15/2021, 4:09. FINDINGS: Image quality: Excellent. Lung bases: Unremarkable. Heart: No significant findings. ABDOMEN: Liver: Liver is prominent in size. Mild hepatic steatosis. Gallbladder: Surgically removed. Biliary ducts: Unremarkable. Pancreas: Unremarkable. Spleen: Unremarkable. Adrenal Glands: Unremarkable. Kidneys and Ureters: Kidneys are normal in size and symmetrical enhancement. Small cortical cysts are seen bilaterally. Stomach and Bowel: Stomach is mildly distended with an air-fluid level. There is distal small bowel dilation near the surgical anastomosis in the right upper abdomen measuring up to 5.5 cm. Small bowel loops are fluid filled with with air-fluid levels. Mildly increased small mucosal enhancement in distal small intestine. Postsurgical changes are present in upper abdomen. Peritoneum: No abnormal intraperitoneal fluid. No free air. Ventral Wall: No hernias. Abdominal Nodes: No retroperitoneal or mesenteric adenopathy by size criteria. Vessels: Aorta and inferior vena cava are normal in size. PELVIS: Pelvic Organs: Unremarkable. Bladder: Unremarkable. Pelvic Nodes: No enlarged lymph nodes. Miscellaneous: No hernias are seen. Bones: Small sclerotic foci are seen involving the T10 vertebral body and the left proximal femur, indeterminate. IMPRESSION: 1. Possible distal small bowel obstruction. There is increased small bowel mucosal enhancement in distal small intestine. A differential diagnosis is enteritis and ileus. No free peritoneal air or free fluid. 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 Dictated by: Juno Bass M.D. on 04/27/2021 at 7:56 Approved by: Juno Bass M.D. on 04/27/2021 at 8:06
[2021-04-27 05:24] LABS: Alanine Aminotransferase 32 IU/L (<50); Albumin 4.7 g/dL (3.5-5.0); Albumin Globulin Ratio 1.5 (1.0-2.8); Alkaline Phosphatase 103 U/L (38-126); Aspartate Aminotransferase 36 IU/L (17-59); BUN Creatinine Ratio 23.8 (6-22); Bilirubin Total 0.6 mg/dL (0.2-1.3); Blood Urea Nitrogen 20 mg/dL (9-20); Calcium 9.8 mg/dL (8.4-10.2); Carbon Dioxide 31 mmol/L (22-32); Chloride 102 mmol/L (98-107); Estimated Glomerular Filt Rate > 60.0 mL/min (>60); Globulin 3.2 g/dL (1.7-4.1); Glucose 145 mg/dL (70-100); HEMOLYSIS < 15 (0-50); Lipase 43 U/L (23-300); Potassium 4.4 mmol/L (3.4-5.1); Red Cell Distribution Width 13.4 % (11.6-14.8); Sodium 138 mmol/L (137-145); Total Protein 7.9 g/dL (6.3-8.2)
[2021-04-27 05:28] LABS: Basophils Absolute Auto 100 /uL (0-100); Basophils Percent Auto 0.8 % (0-2); Eosinophils Absolute Auto 200 /uL (0-450); Eosinophils Percent Auto 1.1 % (2-4); Hematocrit 46.1 % (41-53); Hemoglobin 15.4 g/dL (13.5-17.5); Lymphocytes Absolute Auto 3100 /uL (1100-4500); Mean Corpuscular HGB Conc 33.5 % (30-36); Mean Corpuscular Hemoglobin 29.9 PG (26-34); Mean Corpuscular Volume 89.3 fL (80-100); Monocytes Absolute Auto 1500 /uL (0-900); Neutrophils Absolute Auto 10400 /uL (1500-7000); Neutrophils Percent Auto 68.1 % (50-75); Platelet Count 451 X10^3/uL (150-400); Red Blood Cell Count 5.16 X10^6/uL (4.5-5.9); White Blood Cell Count 15.3 X10^3/uL (4.5-11.0)
[2021-04-27 05:29] LABS: Add Manual Diff / Slide Review SLIDE REVIEW
[2021-04-27] MEDS: HYDROMORPHONE 0.5 MG INJ IV (05:29)
[2021-04-27] MEDS: SODIUM CHLORIDE 0.9% 1,000 ML 1000 ML IV (05:29)
[2021-04-27] MEDS: ONDANSETRON 4 MG/2 ML INJ IV (05:29)
--- NOTE | 2021-04-27 05:39 | ED_ITS ---
HPI - Abdominal Pain General Chief Complaint: Abdominal Pain Stated Complaint: nausea and vomiting, states small bowel obstructio Time Seen by Provider: 04/27/21 04:57 Source: patient and family Mode of arrival: Ambulatory Limitations: no limitations History of Present Illness HPI narrative: Patient is a 45-year-old male with history of small-bowel obstructions, neuroendocrine tumors, resection, splenectomy presenting today with abdominal pain and nausea. He said it started around 6:00 p.m. with pain and nausea. He was seen here he had x-ray and blood work. He did have leukocytosis of 20,000 thought to be stress induced. X-ray showed possible small bowel obstruction however his pain and symptoms improved significantly after being in emergency department for several hours use discharged home. He had a CT scheduled for last week as routine follow-up for neuroendocrine tumors. Was not having any abdominal pain or symptoms at that time he is unsure of those results. This evening he says he feels like this is a small bowel obstruction and is twisting on itself. He sometimes can wait it out at home but is unable to do so. He has not had vomiting but has significant nausea and pain. Related Data Home Medications Medication Instructions Recorded Confirmed metformin 500 mg tablet 500 mg DAILY 04/27/21 04/27/21 Previous Rx's Medication Instructions Recorded hydrocodone 5 mg-acetaminophen 325 1 tab PO Q6H PRN #6 tab 04/15/21 mg tablet ondansetron 4 mg disintegrating 4 mg PO Q6H PRN #10 tab 04/15/21 tablet Allergies Allergy/AdvReac Type Severity Reaction Status Date / Time No Known Drug Allergies Allergy Verified 07/04/20 12:16 Review of Systems Review of Systems Narrative: GENERAL: Denies chills, fatigue, malaise, fever, sweats, travel HEENT: Denies sinus pain, ear pain, sore throat, difficulty swallowing, neck pain RESPIRATORY: Denies dyspnea, cough, wheezing, hemoptysis, sputum. CARDIOVASCULAR: Denies chest pain, palpitations, orthopnea, edema GASTROINTESTINAL: See HPI : Denies dysuria, frequency, incontinence, hematuria, urinary retention, flank pain. MUSCULOSKELETAL: Denies weakness, joint pain, or bony pain SKIN: No rash, no erythema, no pruritus NEUROLOGIC: Denies weakness, dizziness, headache, numbness, change in speech, confusion PSYCHIATRIC: No concerning psychosocial issues. 12 point review of systems is negative except for those stated above and HPI Patient History Medical History Cough COVID-19 Social History household members: significant other Smoking Status: Never smoker alcohol intake: current Smoking Status: Never smoker alcohol intake frequency: a few times a month Substance Use Type: does not use Exam Initial Vital Signs Initial Vital Signs: Vital Signs Temperature 98.0 F 04/27/21 05:01 Pulse Rate 98 H 04/27/21 05:01 Respiratory Rate 18 04/27/21 05:01 Blood Pressure 131/82 04/27/21 05:01 Pulse Oximetry 97 04/27/21 05:01 GENERAL: Patient is 45-year-old male appears in pain HEENT: Head atraumatic,EOMI, pupils reactive, face symmetric, [moist] mucous membranes CARDIOVASCULAR: Regular rate and rhythm without murmurs, rubs or gallops. RESPIRATORY: Breath sounds equal bilaterally, no wheezes rales or rhonchi. ABDOMEN: Soft, a vertical scar noted. Hyperactive bowel sounds. Nondistended although diffusely tender EXTREMITIES: Normal range of motion, no clubbing or edema. Neurovascularly intact NEUROLOGICAL: Alert and oriented x4.Normal gait and speech. SKIN: Warm, dry, no laceration, no petechiae, no rashes or lesions. Course Orders Ordered: Acetaminophen (Acetaminophen 325 Mg Tablet) 650 mg PO Q6HR PRN PRN Reason: Fever/Mild Pain (1-3) Hydrocodone Bitart/Acetaminophen (Hydrocodone/Acet 5/325 Tablet) 2 tab PO Q4HR PRN PRN Reason: Pain, Severe (7-10) Last Admin: 04/27/21 14:27 Dose: 2 tab Documented by: Enoxaparin Sodium (Enoxaparin 40 Mg/0.4 Ml Syringe) 40 mg SUBCUT DAILY ELAINE Lactated Ringer's (Lactated Ringers) 1,000 mls @ 150 mls/hr IV CONT ELAINE Last Admin: 04/27/21 14:30 Dose: 150 mls/hr Documented by: Ibuprofen (Ibuprofen 600 Mg Tablet) 600 mg PO Q6HR PRN PRN Reason: Fever/Mild Pain (1-3) Last Admin: 04/27/21 16:18 Dose: 600 mg Documented by: Morphine Sulfate (Morphine 4 Mg/Ml Inj) 4 mg IV Q4HR PRN PRN Reason: Pain, Severe (7-10) Naloxone HCl (Naloxone 0.4 Mg/Ml Vial) 0.2 mg IV Q2MIN PRN PRN Reason: Opiate Reversal Ondansetron HCl (Ondansetron 4 Mg/2 Ml Inj) 4 mg IV Q6HR [facility] Last Admin: 04/27/21 12:03 Dose: Not Given Documented by: Pantoprazole Sodium (Pantoprazole Dr 20 Mg Tablet) 40 mg PO 0600 [facility] Discontinued Medications Enoxaparin Sodium (Enoxaparin 30 Mg/0.3 Ml Syringe) 30 mg SUBCUT DAILY [facility] Last Admin: 04/27/21 08:27 Dose: 30 mg Documented by: Hydromorphone HCl (Hydromorphone 0.5 Mg Inj) 0.5 mg IV NOW ONE Stop: 04/27/21 05:12 Last Admin: 04/27/21 05:29 Dose: 0.5 mg Documented by: GERALD Hydromorphone HCl (Hydromorphone 1 Mg Inj) 1 mg IV NOW ONE Stop: 04/27/21 06:00 Last Admin: 04/27/21 06:03 Dose: 1 mg Documented by: GERALD Sodium Chloride (Normal Saline 0.9%) 1,000 mls @ 1,000 mls/hr IV CONT [facility] Last Admin: 04/27/21 05:29 Dose: 1,000 mls/hr Documented by: GERALD Ibuprofen (Ibuprofen Susp 100 Mg/5 Ml Udc) 170 mg PO NOW ONE Stop: 04/27/21 05:52 Ondansetron HCl (Ondansetron 4 Mg/2 Ml Inj) 4 mg IV NOW ONE Stop: 04/27/21 05:12 Last Admin: 04/27/21 05:29 Dose: 4 mg Documented by: GERALD Vital Signs Vital signs: Vital Signs - 8 hr 04/27/21 05:01 04/27/21 05:56 04/27/21 06:00 Temperature 98.0 F Pulse Rate 98 H 70 74 Respiratory Rate 18 Blood Pressure 131/82 140/82 Pulse Oximetry 97 96 97 04/27/21 06:30 04/27/21 06:31 Temperature Pulse Rate 75 65 Respiratory Rate Blood Pressure 142/67 H Pulse Oximetry 96 96 MDM - Abdominal Pain Lab Data Result diagrams: 04/27/21 04:58 04/27/21 04:58 Labs: Lab Results 04/27/21 04/27/21 04/27/21 Range/Units 04:58 04:58 06:30 WBC 15.3 H (4.5-11.0) X10^3/uL RBC 5.16 (4.5-5.9) X10^6/uL Hgb 15.4 (13.5-17.5) g/dL Hct 46.1 (41-53) % MCV 89.3 (80-100) fL MCH 29.9 (26-34) PG MCHC 33.5 (30-36) % RDW 13.4 (11.6-14.8) % Plt Count 451 H (150-400) X10^3/uL Neut % (Auto) 68.1 (50-75) % Lymph % (Auto) 20.0 L (25-40) % Lea % (Auto) 10.0 (3-14) % Eos % (Auto) 1.1 L (2-4) % Baso % (Auto) 0.8 (0-2) % Neut # (Auto) 11680 H (3481-0654) /uL Lymph # (Auto) 3100 (6363-8352) /uL Lea # (Auto) 1500 H (0-900) /uL Eos # (Auto) 200 (0-450) /uL Baso # (Auto) 100 (0-100) /uL Platelet Estimate Increased on smear Plt Morphology Comment Large platelets seen RBC Morphology Normal morphology Sodium 138 (137-145) mmol/L Potassium 4.4 (3.4-5.1) mmol/L Chloride 102 (98-107) mmol/L Carbon Dioxide 31 (22-32) mmol/L BUN 20 (9-20) mg/dL Creatinine 0.84 (0.66-1.25) mg/dL Estimated GFR > 60.0 (>60) mL/min BUN/Creatinine Ratio 23.8 H (6-22) Glucose 145 H (70-100) mg/dL Calcium 9.8 (8.4-10.2) mg/dL Total Bilirubin 0.6 (0.2-1.3) mg/dL AST 36 (17-59) IU/L ALT 32 (<50) IU/L Alkaline Phosphatase 103 (38-126) U/L Total Protein 7.9 (6.3-8.2) g/dL Albumin 4.7 (3.5-5.0) g/dL Globulin 3.2 (1.7-4.1) g/dL Albumin/Globulin Ratio 1.5 (1.0-2.8) Lipase 43 (23-300) U/L SARS-CoV-2 (PCR) Negative (Negative) Imaging Data CT scan - abdomen/pelvis: Radiologist's Impression: Preliminary report dilation of small bowel loops with air filled fluid levels present and maximum dimension of 5.5 cm within right upper quadrant come possible with small-bowel obstruction and probable transition point in right upper quadrant as detailed. No pneumoperitoneum or pneumatosis. MDM Narrative Medical decision making narrative: Patient has had multiple bowel surgeries and history of small-bowel obstructions. CT does confirm small bowel obstruction with transition point in right upper quadrant. Pain is much better after dilaudid it does she is better after Zofran. Discussed with him NG-tube however he is opting not to have the NG tube despite its benefits at this time. Dr. Lindsay consulted in regards to patient. She happily accepts patient request medicine consultation. Discharge Plan Departure Patient Disposition: Admitted As Inpatient Clinical Impression: Small bowel obstruction Admit Date/Time: 04/27/21 06:49 Admit Provider: Shelley Lindsay
[2021-04-27 05:42] LABS: Platelet Estimate Increased on smear; Platelet Morphology Comment LARGE PLATELETS SEEN; RBC Morphology Normal Morphology
[2021-04-27] MEDS: HYDROMORPHONE 1 MG INJ IV (06:03)
--- NOTE | 2021-04-27 06:44 | PC.NURSE ---
Pt is declining NGT at this time.
[2021-04-27 07:34] LABS: COVID19 - ADMIT (NP swab/PCR) Negative (Negative)
[2021-04-27] MEDS: LACTATED RINGERS 1,000 ML 150 ML IV ×3 (08:27→21:36)
[2021-04-27] MEDS: ENOXAPARIN 30 MG/0.3 ML SYRINGE SUBCUT (08:27)
--- NOTE | 2021-04-27 10:39 | PM.HP.1 ---
History of Present Illness History of Present Illness Date Patient Seen: 04/27/21 Time Patient Seen: 10:39 Chief complaint: nausea and vomiting, states small bowel obstructio Narrative: Abdominal pain, distension, nausea w/o emesis. No BM in 24 hrs and no flatus. Has had episodes before, last one that required hospitalization was over 2 years. 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 Family & Social History Social History: household members significant other Prior Living Arrangements House Safety & Behavioral: Feels Safe in Current Yes Environment Been Physically Hurt or No Threatened By a Person Suicidal Ideation Description None Suicide Plan Description No Plan Tobacco & Substance use: Smoking Status Never smoker alcohol intake current alcohol intake frequency a few times a month Substance Use Type does not use Comment: FH: father with prostate cancer Meds Home Medications and Allergies Home Medications Medication Instructions Recorded Confirmed Type hydrocodone 5 mg-acetaminophen 325 1 tab PO Q6H PRN #6 tab 04/15/21 04/27/21 Rx mg tablet ondansetron 4 mg disintegrating 4 mg PO Q6H PRN #10 tab 04/15/21 04/27/21 Rx tablet metformin 500 mg tablet 500 mg DAILY 04/27/21 04/27/21 History Allergies Allergy/AdvReac Type Severity Reaction Status Date / Time No Known Drug Allergies Allergy Verified 07/04/20 12:16 Review of Systems Review of Systems ROS: Yes All systems reviewed with the patient and are negative except as otherwise documented Exam Vital Signs (past 8 hours): - 04/27/21 05:01 04/27/21 05:56 04/27/21 06:00 Temperature 98.0 F Pulse Rate 98 H 70 74 Respiratory Rate 18 Blood Pressure 131/82 140/82 Pulse Oximetry 97 96 97 04/27/21 06:30 04/27/21 06:31 04/27/21 07:00 Temperature Pulse Rate 75 65 74 Respiratory Rate Blood Pressure 142/67 H Pulse Oximetry 96 96 95 04/27/21 07:01 04/27/21 08:00 Temperature 97.5 F L Pulse Rate 67 71 Respiratory Rate 17 Blood Pressure 115/70 134/81 Pulse Oximetry 95 95 Oxygen Delivery Method Room Air Oxygen Flow Rate 0 Const General: cooperative and healthy appearing [facility] Head: normocephalic and atraumatic Eyes General: appearance normal, both eyes and all related structures Neck Neck: trachea midline Chest Chest: normal inspection of the chest Resp Effort & Inspection: normal respiratory effort and able to speak in complete sentences Cardio Rate: regular rate Rhythm: regular rhythm GI Inspection: normal to inspection Palpation: soft Other: slight distended. Full length midline scar. no focal tenderness Skin General: no rashes or lesions noted Neuro General: patient alert and patient oriented x3 Extrem General: normal to inspection and full ROM Psych Appearance: grossly normal Attitude: cooperative Judgment: judgment good Objective Labs Result Diagrams: 04/27/21 04:58 04/27/21 04:58 Labs: Laboratory Results - last 24 hr 04/27/21 04/27/21 04/27/21 04:58 04:58 06:30 WBC 15.3 H RBC 5.16 Hgb 15.4 Hct 46.1 MCV 89.3 MCH 29.9 MCHC 33.5 RDW 13.4 Plt Count 451 H Neut % (Auto) 68.1 Lymph % (Auto) 20.0 L Bradley % (Auto) 10.0 Eos % (Auto) 1.1 L Baso % (Auto) 0.8 Neut # (Auto) 80303 H Lymph # (Auto) 3100 Bradley # (Auto) 1500 H Eos # (Auto) 200 Baso # (Auto) 100 Platelet Estimate Increased on smear Plt Morphology Comment Large platelets seen RBC Morphology Normal morphology Sodium 138 Potassium 4.4 Chloride 102 Carbon Dioxide 31 BUN 20 Creatinine 0.84 Estimated GFR > 60.0 BUN/Creatinine Ratio 23.8 H Glucose 145 H Calcium 9.8 Total Bilirubin 0.6 AST 36 ALT 32 Alkaline Phosphatase 103 Total Protein 7.9 Albumin 4.7 Globulin 3.2 Albumin/Globulin Ratio 1.5 Lipase 43 SARS-CoV-2 (PCR) Negative Assessment & Plan Assessment & Plan narrative: Early SBO vs gastroenteritis. Leukocytosis with dehydration. Plan: PSA and triglycerides for routine follow up. BMP and CBC in am. Bowel rest with hydration. Time Spent With Patient Time with patient: 50 to 69 minutes with 50% spent counseling/coordinating care Critical Care time: I spent a total of [] minutes of critical care time on this patient's care today; this time is exclusive of procedural time. Quality VTE Deep Vein Thrombosis/Pulmonary Embolism Present on Admission: No
[2021-04-27] MEDS: HYDROCODONE/ACET 5/325 TABLET 2 TAB PO (14:27)
[2021-04-27] MEDS: IBUPROFEN 600 MG TABLET PO (16:18)
[2021-04-27] MEDS: ALPRAZolam 0.5 MG TABLET PO (19:30)
[2021-04-28 04:00] VITALS: BP 114/71; PULSE 58; RESP 18; TEMP 36.6; O2SAT 96
[2021-04-28] MEDS: LACTATED RINGERS 1,000 ML 150 ML IV (04:18)
[2021-04-28 05:23] LABS: Hematocrit 40.8 % (41-53); Hemoglobin 13.5 g/dL (13.5-17.5); Mean Corpuscular Hemoglobin 29.8 PG (26-34); Mean Corpuscular Volume 90.2 fL (80-100); Platelet Count 422 X10^3/uL (150-400); Red Blood Cell Count 4.52 X10^6/uL (4.5-5.9); Red Cell Distribution Width 13.3 % (11.6-14.8); White Blood Cell Count 11.3 X10^3/uL (4.5-11.0)
[2021-04-28 05:35] LABS: BUN Creatinine Ratio 19.1 (6-22); Blood Urea Nitrogen 13 mg/dL (9-20); Calcium 8.5 mg/dL (8.4-10.2); Carbon Dioxide 32 mmol/L (22-32); Chloride 103 mmol/L (98-107); Estimated Glomerular Filt Rate > 60.0 mL/min (>60); Glucose 94 mg/dL (70-100); HEMOLYSIS < 15 (0-50); Potassium 3.6 mmol/L (3.4-5.1); Sodium 135 mmol/L (137-145); Triglycerides 287 mg/dL (35-150)
[2021-04-28 05:46] LABS: Neutrophils Absolute Manual 6554 /uL (3000-5900); Total Cells Counted 100
[2021-04-28 05:48] LABS: RBC Morphology Normal Morphology
[2021-04-28] MEDS: PANTOPRAZOLE DR 20 MG TABLET 40 MG PO (07:02)
[2021-04-28 08:00] VITALS: BP 121/69; PULSE 64; RESP 15; TEMP 36.3; O2SAT 95
--- NOTE | 2021-04-28 09:21 | CM.DANOTE ---
Addendum entered by LORA Thurman 04/28/21 14:29: ADD: Per Surgeon, pt stable for d/c home today and outpt follow up and no needs. Per RN, discharge instructions provided and pt was taken down to [facility] POV. BF Original Note: Patient is a 45 yo male who was admitted on 04/27/21 for N/V poss SBO. Pt has REG MD [employer] for insurance and his PCP is Dr. James Hernadez. EMR was reviewed. Per Surgeon, pt admitted for bowel rest and hydration for likely early SBO vs gastritis. Pt has hx of COVID+ in Jun 2020 last year and testing COVID neg now. 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 Canales. Pt states that he feels much better and anticipates likely ability to d/c today but waiting for Surgeon to round to determine if pt is medically stable and pt states his Sig Other is on her way in to be bedside from [place] and is available for transport home when discharged. Pt does not anticipate any needs. Plan: SW to follow closely for likely d/c home via [facility] POV and any further identified needs. LORA Thurman Discharge Planning/Care Management Advanced directive, confirm from FAMILY Start: 04/27/21 08:40 Freq: Q24H Status: Active Protocol: Document 04/27/21 09:07 CM (Rec: 04/27/21 09:07 CM [id number]) Advance Directive, confirm on record Time 09:07 Person contacted patient Copy received No CM Discharge Assessment Start: 04/28/21 09:19 Freq: Status: Active Protocol: Document 04/28/21 09:19 BF (Rec: 04/28/21 09:21 BF [id number]) Discharge Planning Assessment Assigned Guard Manager LORA Morales Advance Directives? Yes Advance Directives on File No History Provided By Patient,Medical Record Has Patient been admitted in last 30 No days? Prior Living Arrangements House Household Members significant other Type of transporation used prior to Drives own vehicle admit Independent with ADL's Yes Is patient alert and oriented? Yes Caregiver for Another No Barriers to Discharge No Discharge Plan Home Transportation Arrangement [facility] plans to come in soon and will be able to transport at d /c Referrals Initiated None needed Whiteboard Updated in Patient Room with Yes name and ext. # of Guard Manager Review Status In Process Please Provide Date Initial DC 04/28/21 Assessment Was Performed Next Review Type Continued Stay Review
[2021-04-28 12:00] VITALS: BP 123/65; PULSE 62; RESP 18; TEMP 37.2; O2SAT 98
--- NOTE | 2021-04-28 13:16 | PM.PN.1 ---
Subjective Subjective Date Patient Seen: 04/28/21 Time Patient Seen: 13:16 Exam Vital Signs (past 8 hours): - 04/28/21 08:00 04/28/21 12:00 Temperature 97.3 F L 98.9 F Pulse Rate 64 62 Respiratory Rate 15 18 Blood Pressure 121/69 123/65 Pulse Oximetry 95 98 Oxygen Delivery Method Room Air Oxygen Flow Rate 0 Narrative Exam Narrative: States that he is passing flatus and pain is gone. Const General: cooperative, healthy appearing, well developed and well groomed GI Palpation: soft Other: Flat, Nontender Skin General: dry skin and warm Neuro General: patient alert and patient oriented x3 Cognition: normal cognition Speech: speech normal Psych Appearance: grossly normal Mental Status: mental status grossly normal Speech and Movement: speech and movement normal Affect: normal affect Attitude: cooperative Thought Process: normal Judgment: judgment good Objective Labs Result Diagrams: 04/28/21 04:47 04/28/21 04:47 Labs: Laboratory Results - last 24 hr 04/28/21 04/28/21 04:47 04:47 WBC 11.3 H RBC 4.52 Hgb 13.5 Hct 40.8 L MCV 90.2 MCH 29.8 MCHC 33.0 RDW 13.3 Plt Count 422 H Total Counted 100 Seg Neutrophils % 58.0 Lymphocytes % (Manual) 27.0 Monocytes % (Manual) 15.0 H Neutrophils # (Manual) 6554 H RBC Morphology Normal morphology Sodium 135 L Potassium 3.6 Chloride 103 Carbon Dioxide 32 BUN 13 Creatinine 0.68 Estimated GFR > 60.0 BUN/Creatinine Ratio 19.1 Glucose 94 Calcium 8.5 Triglycerides 287 H PFSH Medical History Cough COVID-19 Social History household members: significant other Smoking Status: Never smoker alcohol intake: current Assessment & Plan Assessment & Plan narrative: PSBO resolved Time Spent With Patient Time with patient: less than 30 minutes Critical Care time: I spent a total of [] minutes of critical care time on this patient's care today; this time is exclusive of procedural time. Quality VTE Deep Vein Thrombosis/Pulmonary Embolism Present on Admission: No
--- NOTE | 2021-04-28 13:21 | PM.DS.1 ---
History of Present Illness History of Present Illness Chief complaint: nausea and vomiting, states small bowel obstructio Discharge Providers Provider Date of admission: 04/27/21 06:49 Discharge Date: 04/28/21 Primary care physician: James Hernadez MD Discharge provider: James Hilliard MD Summary Hospital Course Discharge Diagnosis: PSBO resolved Hospital Course: Admitted, placed on bowel rest, symptoms resolved Status at Discharge Cognitive/behavioral status at discharge: oriented Functional status at discharge: independent ambulation Overall status at discharge: patient is back to baseline Time Spent with Patient Time spent: Less than 30 minutes Exam Vital Signs (past 8 hours): - 04/28/21 08:00 04/28/21 12:00 Temperature 97.3 F L 98.9 F Pulse Rate 64 62 Respiratory Rate 15 18 Blood Pressure 121/69 123/65 Pulse Oximetry 95 98 Oxygen Delivery Method Room Air Oxygen Flow Rate 0 Const General: cooperative Nutritional Appearance: average body habitus GI Inspection: normal to inspection Palpation: soft Skin General: dry skin and warm Neuro General: patient alert Cognition: normal cognition Speech: speech normal Sensory Exam: no sensory deficits noted Extrem General: normal to inspection Psych Appearance: grossly normal Mental Status: mental status grossly normal Speech and Movement: speech and movement normal Mood: congruent mood Affect: normal affect Attitude: cooperative Thought Process: normal Thought Content: normal Judgment: judgment good Objective Labs Result Diagrams: 04/28/21 04:47 04/28/21 04:47 Labs: Laboratory Results - last 24 hr 04/28/21 04/28/21 04:47 04:47 WBC 11.3 H RBC 4.52 Hgb 13.5 Hct 40.8 L MCV 90.2 MCH 29.8 MCHC 33.0 RDW 13.3 Plt Count 422 H Total Counted 100 Seg Neutrophils % 58.0 Lymphocytes % (Manual) 27.0 Monocytes % (Manual) 15.0 H Neutrophils # (Manual) 6554 H RBC Morphology Normal morphology Sodium 135 L Potassium 3.6 Chloride 103 Carbon Dioxide 32 BUN 13 Creatinine 0.68 Estimated GFR > 60.0 BUN/Creatinine Ratio 19.1 Glucose 94 Calcium 8.5 Triglycerides 287 H PFSH Medical History Cough COVID-19 Social History household members: significant other Smoking Status: Never smoker alcohol intake: current Discharge Assessment & Plan Assessment and Plan Assessment: PSBO resolved Plan of Treatment: conservative treatment Discharge Plan Discharge Plan Patient Disposition: Home Discharge orders & Medications Prescriptions: Continued ondansetron 4 mg tablet,disintegrating 4 mg PO Q6H PRN (Reason: nausea and vomiting) Qty: 10 RF: 0 hydrocodone-acetaminophen 5-325 mg tablet 1 tab PO Q6H PRN (Reason: pain) Qty: 6 RF: 0 metformin 500 mg tablet 500 mg DAILY RF: 0 alprazolam 0.5 mg Tablet 0.5 mg PO BID PRN (Reason: anxiety) RF: 0 Follow up/Referrals: James Hernadez MD [Primary Care Provider] - Diet/Activity/Treatments Diet: Diet as Tolerated Activity: as frank Skin/Wound/Dressing Care Report to your healthcare provider any signs of infection, such as:: increased pain Discharge Data Primary Care Provider: James Hernadez Attending Provider: Shelley Lindsay VTE Deep Vein Thrombosis/Pulmonary Embolism Present on Admission: No
--- NOTE | 2021-04-28 13:36 | PC.NURSE ---
A&Ox4. VSS. Denies pain. Independent in room. IV removed. Discharge discussed, questions answered. Off of unit at 1:36 via wheelchair, driving home.
[2021-04-29 12:09] LABS: PSA, Total 2.3 ng/mL (0.0-4.0)
== END 2021-04-28 13:37 | disposition home or self-care (01) ==
LOC: ED 05:57 → AC 07:17
PROVIDERS: Admitting Provider Surgery; Emergency Provider Emergency Medicine; Family Provider Specialist; PCP Specialist; Referring Provider Emergency Medicine; Visit Provider Surgery
DX: K56.600 Partial intestinal obstruction, unspecified as to cause (principal); D72.829 Elevated white blood cell count, unspecified; E86.0 Dehydration; R11.0 Nausea; Z20.822 Contact with and (suspected) exposure to COVID-19
CPT/HCPCS: 36415; 74177; 80048; 80053; 81003; 82962; 83690; 84153; 84154; 84478; 85025; 87635; 96361; 96374; 96375; 96376; 99218; 99284; C9803; G0378; J1170; J1650; J2405; Q9967

== ENCOUNTER → 2021-09-28 14:22 | Outpatient (CLI) | payer OTHER, SELFPAY ==
[2021-04-27 08:32] VITALS: BMI 26.7
[2021-09-28 14:49] LABS: COVID19 -Nasal RAPID Negative (Negative)
== END ==
PROVIDERS: Family Provider Specialist; PCP Specialist; Visit Provider Nurse Practitioner Family
DX: Z20.822 Contact with and (suspected) exposure to COVID-19 (principal)
CPT/HCPCS: 87635

== ENCOUNTER → 2022-05-17 18:19 | Outpatient (CLI) | payer OTHER, SELFPAY ==
[2021-04-27 08:32] VITALS: BMI 26.7
--- NOTE | 2022-05-17 18:23 | DI.MRI.S_ITS ---
PROCEDURE: MR PELVIS WO CON INDICATIONS: Bilateral hip pain TECHNIQUE: Noncontrast coronal , sagittal and axial T1 spin echo and STIR through the bony pelvis. COMPARISON: None. FINDINGS: Image quality: Excellent. Bones: There is no marrow edema. No fracture or dislocation. No evidence of avascular necrosis of femoral head. Bilateral sacroiliac joint spaces are well preserved. No evidence of ankylosis or erosion. No suspicious bony lesion. Benign-appearing intraosseous cyst in left proximal femoral shaft is seen. The visualized lower lumbar spine appears normally aligned. Tendons: The gluteus medius and minimus tendons appear intact, without associated muscle atrophy. The nearby proximal iliotibial band also appears intact. The iliopsoas tendon appears intact, without adjacent bursal fluid collections or evidence for impingement syndrome. The origin of the hamstring tendon is intact at the ischial tuberosity, as well as the associated sacrotuberous ligament. The straight and reflected heads of the rectus femoris muscle origin appear intact, as well as the conjoint tendon. No obvious labral tear is seen in the absence of intra-articular contrast. Soft tissues: Visualized muscles demonstrate normal bulk and internal signal. No joint effusions. No free pelvic fluid. Bladder wall thickness is normal. Genitourinary structures and bowel loops appear normal where visualized. No gross lymphadenopathy is seen in pelvis by size criteria. IMPRESSION: 1. Unremarkable MRI examination of pelvis and bilateral hips. No finding to explain patient's symptoms. 2. No suspicious intraosseous lesion. Likely benign small intraosseous cyst in left proximal femoral shaft. 3. No gross pelvic lymphadenopathy by size criteria. No pelvic free fluid. Dictated by: Chris Fuentes M.D. on 05/18/2022 at 8:09 Approved by: Chris Fuentes M.D. on 05/18/2022 at 8:21
== END ==
PROVIDERS: Family Provider Specialist; PCP Specialist; Referring Provider Orthopaedic Surgery Foot and Ankle Surgery; Visit Provider Orthopaedic Surgery Foot and Ankle Surgery
DX: M25.551 Pain in right hip (principal); M25.552 Pain in left hip
CPT/HCPCS: 72195

== ENCOUNTER 2022-10-11 01:35 | Inpatient (IN) | payer OTHER, SELFPAY ==
[2021-04-27 08:32] VITALS: BMI 26.7
[2022-10-11] VITALS (7 sets, daily range): BP systolic 107–153; BP diastolic 68–94; PULSE 75–92; RESP 16–18; TEMP 36.6–37.4; O2SAT 94–97; BMI 27.1
--- NOTE | 2022-10-11 01:56 | DI.CT.S_ITS ---
PROCEDURE: CT ABDOMEN PELVIS W CON INDICATIONS: hx of SBO with abd pain TECHNIQUE: After the administration of oral and IV contrast, axial sections were acquired from the lung bases to the pubic symphysis. Coronal and sagittal reformats were performed. For radiation dose reduction, the following was used: automated exposure control, adjustment of mA and/or kV according to patient size. COMPARISON: [facility], CT, CT ABDOMEN PELVIS W CON, 04/27/2021, 5:20. FINDINGS: Image quality: Excellent. Lung bases: Unremarkable. Heart: No significant findings. ABDOMEN: Liver: Normal size. Mild hepatic steatosis. Gallbladder: Surgically absent. Biliary ducts: Unremarkable. Pancreas: Unremarkable. Spleen: Surgically absent. There is a 1.0 x 1.4 cm enhancing nodule with CT calcification in left upper quadrant, unchanged, most likely a small splenule. Adrenal Glands: Unremarkable. Kidneys and Ureters: There is a 1.4 cm hypodense nodule in the superior pole of the right kidney, most likely a cyst. A 0.4 cm hypodense nodule in left kidney is also likely a cyst but too small to further characterize. Stomach and Bowel: Stomach is mildly distended. There are postsurgical changes in the left upper quadrant and right upper quadrant. A loop of dilated small intestine at the surgical anastomosis in the left upper quadrant measure 5.2 cm in diameter with an air-fluid level. The posterior wall is thickened. At the surgical anastomosis in the right upper quadrant, there is also small bowel dilation measuring 3 cm. Overall, the CT appearance for both areas are unchanged. Fluid-filled proximal bowel loops are mildly prominent in caliber measuring up to 2.7 cm in diameter. Peritoneum: No abnormal intraperitoneal fluid. No free air. Ventral Wall: No hernia. Abdominal Nodes: No retroperitoneal or mesenteric adenopathy by size criteria. Vessels: Aorta and inferior vena cava are normal in size. PELVIS: Pelvic Organs: Unremarkable. Bladder: Unremarkable. Pelvic Nodes: No enlarged lymph nodes. Miscellaneous: No inguinal hernias are seen. Bones: Unremarkable. IMPRESSION: 1. Postsurgical changes are noted in the left upper quadrant and right upper quadrant of abdomen. Associated with postsurgical changes are focal dilation of small intestine, more pronounced in the left upper quadrant. The surgical anastomosis in the left upper upper quadrant also appears thickened. There is, however, no significant change when compared to the last exam. Cannot rule out low-grade proximal small bowel obstruction. 2. Splenectomy. A small enhance soft tissue nodule in the left upper quadrant is most likely a remanent splenic tissue. 3. Hepatic steatosis. No significant discrepancy with the night coordinator radiology preliminary report. Dictated by: Juno Bass M.D. on 10/11/2022 at 8:16 Approved by: Juno Bass M.D. on 10/11/2022 at 8:58
[2022-10-11 02:32] LABS: Add Manual Diff / Slide Review NO; Basophils Absolute Auto 300 /uL (0-100); Basophils Percent Auto 1.3 % (0-2); Eosinophils Absolute Auto 200 /uL (0-450); Hematocrit 55.3 % (41-53); Hemoglobin 18.1 g/dL (13.5-17.5); Lymphocytes Absolute Auto 2900 /uL (1100-4500); Mean Corpuscular HGB Conc 32.7 % (30-36); Mean Corpuscular Hemoglobin 29.2 PG (26-34); Mean Corpuscular Volume 89.4 fL (80-100); Monocytes Absolute Auto 2100 /uL (0-900); Monocytes Percent Auto 9.5 % (3-14); Neutrophils Absolute Auto 16900 /uL (1500-7000); Neutrophils Percent Auto 75.2 % (50-75); Platelet Count 431 X10^3/uL (150-400); Red Blood Cell Count 6.19 X10^6/uL (4.5-5.9); Red Cell Distribution Width 13.1 % (11.6-14.8); White Blood Cell Count 22.4 X10^3/uL (4.5-11.0)
[2022-10-11] MEDS: HYDROMORPHONE 1 MG INJ IV ×5 (02:37→21:12)
[2022-10-11] MEDS: METOCLOPRAMIDE 10 MG/2 ML INJ IV (02:37)
--- NOTE | 2022-10-11 02:41 | ED.GENADULT ---
HPI - General Adult General Chief complaint: Abdominal Pain Stated complaint: bowel obstruction Time Seen by Provider: 10/11/22 01:53 Source: patient Mode of arrival: Ambulatory History of Present Illness HPI narrative: Patient is a 39-year-old male. Has a history of neuroendocrine tumors. Has had multiple bowel obstructions and resections in the past. Has also had radiation. Has also had a splenectomy. Last bowel obstruction here at this facility was in 2020 where his admitted to the hospital and did not require surgery. Within the past 24 hours he has had increasing abdominal pain and nausea and vomiting. He states that it feels like he is having another obstruction. He is taken multiple doses of pain medication and nausea medication at home without any improvement of symptoms. Patient came into the emergency department for evaluation. Related Data Home Medications Medication Instructions Recorded Confirmed alprazolam 0.5 mg tablet 0.5 mg PO BID PRN anxiety 04/27/21 09/28/21 metformin 500 mg tablet 500 mg DAILY 04/27/21 09/28/21 Previous Rx's Medication Instructions Recorded hydrocodone 5 mg-acetaminophen 325 1 tab PO Q6H PRN pain #6 tabs 04/15/21 mg tablet ondansetron 4 mg disintegrating 4 mg PO Q6H PRN nausea and 04/15/21 tablet vomiting #10 tabs Allergies Allergy/AdvReac Type Severity Reaction Status Date / Time No Known Drug Allergies Allergy Verified 09/28/21 14:16 Review of Systems Review of Systems ROS Unobtainable: All systems reviewed & are unremarkable except as noted in HPI and below Patient History Medical History Cough COVID-19 Social History household members: significant other Smoking Status: Never smoker alcohol intake: current Smoking Status: Never smoker alcohol intake frequency: a few times a month Substance Use Type: does not use Exam Initial Vital Signs Initial Vital Signs: Vital Signs Temperature 97.8 F 10/11/22 01:44 Pulse Rate 92 H 10/11/22 01:44 Respiratory Rate 18 10/11/22 01:44 Blood Pressure 137/94 H 10/11/22 01:44 Pulse Oximetry 95 10/11/22 01:44 Oxygen Delivery Method Room Air 10/11/22 01:44 Const General: cooperative and No ill appearing HENVT Head: normal to inspection and normocephalic Resp Effort & Inspection: normal respiratory effort Cardio Rate: regular rate GI Inspection: distended Palpation: tender Neuro General: patient alert, patient awake, patient oriented x3 and moves all extremities Extrem General: capillary refill normal Course Orders Ordered: ED Orders 10/11/22 01:56 CT abdomen pelvis w con Stat 10/11/22 02:22 Complete Blood Count AUTO DIFF Stat Comprehensive Metabolic Panel Stat Lactate (Lactic Acid) Stat Lipase Stat Hydromorphone HCl (Hydromorphone 0.5 Mg Inj) 0.5 mg IV Q2H PRN PRN Reason: Pain, Severe (7-10) Sodium Chloride (Normal Saline 0.9%) 1,000 mls @ 125 mls/hr IV CONT ELAINE Last Admin: 10/11/22 02:44 Dose: 125 mls/hr Documented By: RAYMOND Ondansetron HCl (Ondansetron 4 Mg/2 Ml Inj) 4 mg IV Q4HR PRN PRN Reason: Nausea And Vomiting Discontinued Medications Hydromorphone HCl (Hydromorphone 1 Mg Inj) 1 mg IV NOW ONE Stop: 10/11/22 02:29 Last Admin: 10/11/22 02:37 Dose: 1 mg Documented By: RAYMOND Metoclopramide HCl (Metoclopramide 10 Mg/2 Ml Inj) 10 mg IV NOW ONE Stop: 10/11/22 02:29 Last Admin: 10/11/22 02:37 Dose: 10 mg Documented By: RAYMOND Vital Signs Vital signs: Vital Signs - 8 hr 10/11/22 01:44 10/11/22 02:21 10/11/22 02:22 Temperature 97.8 F Pulse Rate 92 H 84 83 Respiratory Rate 18 Blood Pressure 137/94 H Pulse Oximetry 95 94 94 Oxygen Delivery Method Room Air Room Air Room Air 10/11/22 02:22 Temperature Pulse Rate Respiratory Rate Blood Pressure 153/89 H Pulse Oximetry Oxygen Delivery Method Medical Decision Making Medical Records Medical records reviewed: Yes I reviewed the patient's medical records. Lab Data Lab results reviewed: Yes I reviewed the patient's lab results. 10/11/22 02:22 10/11/22 02:22 Labs: Lab Results 10/11/22 10/11/22 10/11/22 Range/Units 02:22 02:22 02:22 WBC 22.4 H (4.5-11.0) X10^3/uL RBC 6.19 H (4.5-5.9) X10^6/uL Hgb 18.1 H (13.5-17.5) g/dL Hct 55.3 H (41-53) % MCV 89.4 (80-100) fL MCH 29.2 (26-34) PG MCHC 32.7 (30-36) % RDW 13.1 (11.6-14.8) % Plt Count 431 H (150-400) X10^3/uL Neut % (Auto) 75.2 H (50-75) % Lymph % (Auto) 13.0 L (25-40) % [place] % (Auto) 9.5 (3-14) % Eos % (Auto) 1.0 L (2-4) % Baso % (Auto) 1.3 (0-2) % Neut # (Auto) 07273 H (5927-4102) /uL Lymph # (Auto) 2900 (7611-3269) /uL [place] # (Auto) 2100 H (0-900) /uL Eos # (Auto) 200 (0-450) /uL Baso # (Auto) 300 H (0-100) /uL Sodium 131 L (137-145) mmol/L Potassium 4.2 (3.4-5.1) mmol/L Chloride 95 L (98-107) mmol/L Carbon Dioxide 26 (22-32) mmol/L BUN 21 H (9-20) mg/dL Creatinine 0.80 (0.66-1.25) mg/dL Estimated GFR > 60 (>60) mL/min BUN/Creatinine Ratio 26.3 H (6-22) Glucose 152 H (70-100) mg/dL Lactate 1.2 (0.7-2.1) mmol/L Calcium 8.9 (8.4-10.2) mg/dL Total Bilirubin 0.8 (0.2-1.3) mg/dL AST 46 (17-59) IU/L ALT 44 (<50) IU/L Alkaline Phosphatase 85 (38-126) U/L Total Protein 8.0 (6.3-8.2) g/dL Albumin 4.6 (3.5-5.0) g/dL Globulin 3.4 (1.7-4.1) g/dL Albumin/Globulin Ratio 1.4 (1.0-2.8) Lipase 53 (23-300) U/L Imaging Data CT scan - abdomen/pelvis: Radiologist's Impression: Air-fluid levels within moderately distended small bowel, pattern slightly changed compared to 2020 study but the overall appearance is similar suggesting likely bowel obstruction MDM Narrative Medical decision making narrative: After Reglan and IV Dilaudid patient states that his nausea and his pain has greatly improved. He would like to hold on an NG tube for now as he states that the last time he had a bowel obstruction he was able to improve without an NG tube. We had a discussion about repeating a CT scan today. He is obviously concerned about the amount of radiation that he is had throughout his life. We discussed that the CT scan would necessarily be to diagnosed a bowel obstruction as he most likely has that based on his history and physical exam but the concern be is there a perforation or other issues like an abscess that would require more emergent surgical intervention. After this discussion the patient agreed to the CT scan which showed bowel obstruction. Patient does have a leukocytosis but also has an elevation in his H&H and also platelets. I suspect a degree of hemoconcentration. His lactate is unremarkable. Will hold on any antibiotics. Discussed the case with Dr. Agrawal on-call for General surgery who will admit for further evaluation and treatment. I did discuss the findings with the CT scan with the patient and his bedside. They expressed understanding and agreement with plan. Discharge Plan Departure Patient Disposition: Admitted As Inpatient Clinical Impression: Small bowel obstruction Admit Date/Time: 10/11/22 03:59 Admit Provider: Kirby Agrawal
[2022-10-11] MEDS: SODIUM CHLORIDE 0.9% 1,000 ML 125 ML IV ×2 (02:44→04:38)
[2022-10-11 02:48] LABS: Alanine Aminotransferase 44 IU/L (<50); Albumin 4.6 g/dL (3.5-5.0); Albumin Globulin Ratio 1.4 (1.0-2.8); BUN Creatinine Ratio 26.3 (6-22); Bilirubin Total 0.8 mg/dL (0.2-1.3); Blood Urea Nitrogen 21 mg/dL (9-20); Calcium 8.9 mg/dL (8.4-10.2); Carbon Dioxide 26 mmol/L (22-32); Chloride 95 mmol/L (98-107); Estimated Glomerular Filt Rate > 60 mL/min (>60); Globulin 3.4 g/dL (1.7-4.1); Glucose 152 mg/dL (70-100); HEMOLYSIS 53 (0-50); Lipase 53 U/L (23-300); Sodium 131 mmol/L (137-145)
[2022-10-11 02:49] LABS: Alkaline Phosphatase 85 U/L (38-126); Aspartate Aminotransferase 46 IU/L (17-59); Lactate (Lactic Acid) 1.2 mmol/L (0.7-2.1); Potassium 4.2 mmol/L (3.4-5.1)
[2022-10-11 04:37] LABS: COVID19 -Nasal RAPID Negative (Negative)
[2022-10-11] MEDS: ONDANSETRON 4 MG/2 ML INJ IV ×3 (04:59→15:20)
[2022-10-11] MEDS: HYDROMORPHONE 0.5 MG INJ IV ×2 (04:59→08:43)
--- NOTE | 2022-10-11 07:50 | PC.NURSE ---
Pt arrived via wheelchair from ED at 0430. Ambulated to bed stable on feet w/o complications. Pt AOx3 HR 92 O2: 95% BP 132/73 (89) T 98.3 RR 18. Pt oriented to room and call light. C/o pain and nausea, medicated per orders. Pt states he had a biopsy of prostate exactly one week ago and still having some hematuria, this RN did not visualize this.
--- NOTE | 2022-10-11 08:51 | CM.DANOTE ---
Initial DCP Assessment Note Pt is a 47 yo male, resident of [place] , history of neuroendocrine tumors and radiation, Has had multiple bowel obstructions and resections in the past presents with concern for new bowel obstruction, admitted awaiting consultation from general surgery PCP: James Hernadez Payer: Arianna Reviewed chart, initial assessment completed with information available on the chart Patient is indp at baseline, lives w/ SO and plans to return home upon discharge. Awaiting consult and next steps in medical plan of care from general surgery No barriers identified at this time to patient's safe discharge home w/family to assist; close outpatient f/u recommended. CM team following closely in case any DC needs or concerns arise LORA Le Discharge Planning/Care Management CM Discharge Assessment Start: 10/11/22 08:47 Freq: Status: Active Protocol: Document 10/11/22 08:47 JESUSITA (Rec: 10/11/22 08:51 JESUSITA [id number]) Discharge Planning Assessment Assigned Wool Carder LORA Arreola DPOA/Assigned Designee Name mother Harry Contact Information [phone] Advance Directives? 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 Yes Discharge Plan Home Transportation Arrangement SO to transport at d/c Referrals Initiated None needed
--- NOTE | 2022-10-11 10:50 | PM.HP.1 ---
History of Present Illness History of Present Illness Date Patient Seen: 10/11/22 Time Patient Seen: 10:50 Chief complaint: bowel obstruction Narrative: Gonzalez is a 47-year-old man who presents with a bowel obstruction. He has had multiple bowel obstructions in the past which have resolved without surgery. His original surgery was as a child when he was treated for lymphoma. He also had some sort of a perforation with a bowel resection about 20 years ago with unclear etiology. The started to experience abdominal pain, nausea and vomiting yesterday and presented to the ER overnight. A CT scan showed bowel obstruction. He is nauseated but has not vomited since admission. Patient History Medical History Cough COVID-19 Family & Social History Social History: household members significant other Prior Living Arrangements House Safety & Behavioral: Feels Safe in Current Yes Environment Tobacco & Substance use: Smoking Status Never smoker alcohol intake former alcohol intake frequency a few times a month Substance Use Type does not use Meds Home Medications and Allergies Home Medications Medication Instructions Recorded Confirmed Type hydrocodone 5 mg-acetaminophen 325 1 tab PO Q6H PRN pain #6 tabs 04/15/21 09/28/21 Rx mg tablet ondansetron 4 mg disintegrating 4 mg PO Q6H PRN nausea and 04/15/21 10/11/22 Rx tablet vomiting #10 tabs alprazolam 0.5 mg tablet 0.5 mg PO BID PRN anxiety 04/27/21 10/11/22 History Allergies Allergy/AdvReac Type Severity Reaction Status Date / Time No Known Drug Allergies Allergy Verified 09/28/21 14:16 Exam Vital Signs (past 8 hours): - 10/11/22 10:23 Temperature 99.3 F Pulse Rate 92 H Respiratory Rate 16 Blood Pressure 119/73 Pulse Oximetry 95 Oxygen Delivery Method Room Air Narrative Exam Narrative: Abdomen is soft, moderately tender, moderately distended No peritonitis There is a midline surgical scar Objective Labs 10/11/22 02:22 10/11/22 02:22 Labs: Laboratory Results - last 24 hr 10/11/22 10/11/22 10/11/22 02:22 02:22 02:22 WBC 22.4 H RBC 6.19 H Hgb 18.1 H Hct 55.3 H MCV 89.4 MCH 29.2 MCHC 32.7 RDW 13.1 Plt Count 431 H Neut % (Auto) 75.2 H Lymph % (Auto) 13.0 L [place] % (Auto) 9.5 Eos % (Auto) 1.0 L Baso % (Auto) 1.3 Neut # (Auto) 05220 H Lymph # (Auto) 2900 [place] # (Auto) 2100 H Eos # (Auto) 200 Baso # (Auto) 300 H Sodium 131 L Potassium 4.2 Chloride 95 L Carbon Dioxide 26 BUN 21 H Creatinine 0.80 Estimated GFR > 60 BUN/Creatinine Ratio 26.3 H Glucose 152 H Lactate 1.2 Calcium 8.9 Total Bilirubin 0.8 AST 46 ALT 44 Alkaline Phosphatase 85 Total Protein 8.0 Albumin 4.6 Globulin 3.4 Albumin/Globulin Ratio 1.4 Lipase 53 SARS-CoV-2 (PCR) 10/11/22 04:15 WBC RBC Hgb Hct MCV MCH MCHC RDW Plt Count Neut % (Auto) Lymph % (Auto) [place] % (Auto) Eos % (Auto) Baso % (Auto) Neut # (Auto) Lymph # (Auto) [place] # (Auto) Eos # (Auto) Baso # (Auto) Sodium Potassium Chloride Carbon Dioxide BUN Creatinine Estimated GFR BUN/Creatinine Ratio Glucose Lactate Calcium Total Bilirubin AST ALT Alkaline Phosphatase Total Protein Albumin Globulin Albumin/Globulin Ratio Lipase SARS-CoV-2 (PCR) Negative Assessment & Plan Assessment and plan (1) Small bowel obstruction: Status: Acute Plan If nausea and vomiting progress he should have an NG tube placed. If he improves and passes gas we can start clear liquid Time Spent With Patient Critical Care time: I spent a total of [] minutes of critical care time on this patient's care today; this time is exclusive of procedural time.
[2022-10-11] MEDS: LACTATED RINGERS 1,000 ML 100 ML IV ×2 (12:09→21:18)
--- NOTE | 2022-10-11 23:32 | PC.NURSE ---
Addendum entered by Brigid Samaniego R.N. 10/12/22 05:48: Requested oxygen to be started as still has a headache and states he uses O2 at home to help his headaches. O2 started at 2L/min per NC and states he feels like it has already helped. Medicated with Dilaudid for 6/10 abdominal pain and warm blanket applied for comfort. Has had intermittent hiccoughs this shift. Addendum entered by Brigid Samaniego R.N. 10/12/22 03:02: Complaining of both abdominal pain and headache causing nausea. Medicated with Zofran + Dilaudid and then once nausea resolved medicated with Vicodin for the headache. Also provided with ice pack. Original Note: Patient is alert and oriented. Breath sounds CTA. HRR. Denies nausea. Having 6/10 cramping abdominal pain across entire abdomen with most of tenderness in LLQ; medicated with IV Dilaudid with pain decreasing to 3/10. BT hypoactive but present in all quadrants; denies passing flatus. Is NPO except allowed ice chips. Reports he had a recent urologic procedure and has some difficulty in starting to urinate but denies any dysuria. Independent with mobility and has been ambulating in enriquez. Refusing SCD's so reminded to ankle wave. Fall risk score is low.
[2022-10-12] MEDS: ONDANSETRON 4 MG/2 ML INJ IV ×2 (02:43→09:31)
[2022-10-12] MEDS: HYDROMORPHONE 0.5 MG INJ IV ×2 (02:45→09:31)
[2022-10-12] MEDS: HYDROCODONE/ACET 5/325 TABLET 2 TAB PO (02:59)
[2022-10-12 05:22] LABS: Blood Urea Nitrogen 15 mg/dL (9-20); Calcium 8.3 mg/dL (8.4-10.2); Carbon Dioxide 28 mmol/L (22-32); Chloride 99 mmol/L (98-107); Estimated Glomerular Filt Rate > 60 mL/min (>60); Glucose 130 mg/dL (70-100); Potassium 4.5 mmol/L (3.4-5.1); Sodium 133 mmol/L (137-145)
[2022-10-12 05:24] LABS: HEMOLYSIS 51 (0-50)
[2022-10-12] MEDS: HYDROMORPHONE 1 MG INJ IV ×4 (05:45→21:38)
[2022-10-12 06:19] LABS: Add Manual Diff / Slide Review NO; Basophils Absolute Auto 100 /uL (0-100); Basophils Percent Auto 0.4 % (0-2); Eosinophils Absolute Auto 100 /uL (0-450); Eosinophils Percent Auto 0.3 % (2-4); Hematocrit 49.2 % (41-53); Hemoglobin 16.6 g/dL (13.5-17.5); Lymphocytes Absolute Auto 2200 /uL (1100-4500); Lymphocytes Percent Auto 11.5 % (25-40); Mean Corpuscular HGB Conc 33.7 % (30-36); Mean Corpuscular Hemoglobin 30.3 PG (26-34); Mean Corpuscular Volume 89.7 fL (80-100); Monocytes Absolute Auto 1800 /uL (0-900); Monocytes Percent Auto 9.7 % (3-14); Neutrophils Absolute Auto 14700 /uL (1500-7000); Neutrophils Percent Auto 78.1 % (50-75); Platelet Count 391 X10^3/uL (150-400); Red Blood Cell Count 5.48 X10^6/uL (4.5-5.9); Red Cell Distribution Width 13.3 % (11.6-14.8); White Blood Cell Count 18.8 X10^3/uL (4.5-11.0)
[2022-10-12] MEDS: LACTATED RINGERS 1,000 ML 100 ML IV ×2 (07:07→17:53)
[2022-10-12 08:32] VITALS: BP 127/64; PULSE 81; RESP 18; TEMP 36.9; O2SAT 98
[2022-10-12] MEDS: KETOROLAC 30 MG/ML VIAL IV ×2 (11:59→17:53)
[2022-10-12] MEDS: METOCLOPRAMIDE 10 MG/2 ML INJ IV ×2 (12:01→17:53)
--- NOTE | 2022-10-12 13:37 | CM.DPC ---
DCP Cont: Per MD, pt still having nausea and NPO and on oxygen at this time but has home O2 at baseline and has been independent with mobility but not medically stable to discharge yet at this time. Plan: SW to follow closely for pt to begin advancing diet to see if he will be able to tolerate when more medically stable and any further identified discharge planning needs other than home with spouse. LORA Thurman
--- NOTE | 2022-10-12 17:53 | P.PN_ITS ---
Subjective Subjective Date Patient Seen: 10/12/22 Time Patient Seen: 17:53 Interval history: Still nauseated and now with hiccups. He thinks he may have passed small flatus once. Exam Vital Signs (past 8 hours): Oxygen Delivery Method Room Air,CPAP Oxygen Flow Rate 2 Narrative Exam Narrative: No peritoneal signs Abdomen is moderately distended Objective Labs 10/12/22 06:03 10/12/22 05:00 Labs: Laboratory Results - last 24 hr 10/12/22 10/12/22 05:00 06:03 WBC 18.8 H RBC 5.48 Hgb 16.6 Hct 49.2 MCV 89.7 MCH 30.3 MCHC 33.7 RDW 13.3 Plt Count 391 Neut % (Auto) 78.1 H Lymph % (Auto) 11.5 L [place] % (Auto) 9.7 Eos % (Auto) 0.3 L Baso % (Auto) 0.4 Neut # (Auto) 00427 H Lymph # (Auto) 2200 [place] # (Auto) 1800 H Eos # (Auto) 100 Baso # (Auto) 100 Sodium 133 L Potassium 4.5 Chloride 99 Carbon Dioxide 28 BUN 15 Creatinine 0.75 Estimated GFR > 60 BUN/Creatinine Ratio 20.0 Glucose 130 H Calcium 8.3 L PFSH Medical History Cough COVID-19 Social History household members: significant other Smoking Status: Never smoker alcohol intake: former Assessment & Plan Assessment and plan (1) Small bowel obstruction: Status: Acute Plan Recommend we place an NG-tube tonight. If no improvement we can do a Gastrografin challenge Time Spent With Patient Critical Care time: I spent a total of [] minutes of critical care time on this patient's care today; this time is exclusive of procedural time.
--- NOTE | 2022-10-12 18:51 | DI.RAD.S_ITS ---
PROCEDURE: XR ABDOMEN 1V INDICATIONS: NG placement TECHNIQUE: One view of the abdomen acquired. COMPARISON: [facility], CT, CT ABDOMEN PELVIS W CON, 10/11/2022, 2:08. FINDINGS: Surgical changes and devices: Cystectomy clips. Partially visualized nasogastric tube is present below the left hemidiaphragm. Bowel: Bowel gas pattern is nonspecific. Soft tissues: No suspicious abdominal calcifications. Visualized solid organ contours appear normal in size. Bones: No suspicious bony lesions. IMPRESSION: Nasogastric tube is above. Dictated by: Ashly Guajardo M.D. on 10/12/2022 at 19:18 Approved by: Ashly Guajardo M.D. on 10/12/2022 at 19:19
--- NOTE | 2022-10-12 18:54 | PC.NURSE ---
NG tube placed, 14F measuring at 60cm. Patient frank. well, nurse checked for air in stomach, air was auscultated. Draw back for residual, 20CC green fluid was collected. XR for a 1veiw of the abd. ordered stat for placement check.
[2022-10-12 19:30] VITALS: BP 113/68; PULSE 85; RESP 18; TEMP 36.7; O2SAT 94
[2022-10-13] MEDS: METOCLOPRAMIDE 10 MG/2 ML INJ IV ×3 (00:32→20:38)
[2022-10-13] MEDS: HYDROMORPHONE 1 MG INJ IV ×3 (00:32→06:59)
[2022-10-13] MEDS: KETOROLAC 30 MG/ML VIAL IV ×3 (00:32→20:38)
[2022-10-13] MEDS: LACTATED RINGERS 1,000 ML 100 ML IV ×3 (03:48→15:57)
--- NOTE | 2022-10-13 07:55 | PM.PN.1 ---
Subjective Subjective Date Patient Seen: 10/13/22 Time Patient Seen: 07:55 Interval history: Gonzalez had an NG tube inserted last night and he has had significant output. Feeling better overall. He has passed gas twice this morning. Exam Vital Signs (past 8 hours): Oxygen Delivery Method Room Air,CPAP Oxygen Flow Rate 0 Narrative Exam Narrative: Abdomen soft Objective Labs 10/12/22 06:03 10/12/22 05:00 PFSH Medical History Cough COVID-19 Social History household members: significant other Smoking Status: Never smoker alcohol intake: former Assessment & Plan Assessment and plan (1) Small bowel obstruction: Status: Acute Plan I would like to see him continue to pass more gas this morning before we remove the NG tube and start clears. Time Spent With Patient Critical Care time: I spent a total of [] minutes of critical care time on this patient's care today; this time is exclusive of procedural time.
[2022-10-13 08:00] VITALS: BP 124/73; PULSE 81; RESP 17; TEMP 36.6; O2SAT 100
[2022-10-13] MEDS: LORazepam 2 MG/ML INJ 0.5 MG IV ×3 (12:09→20:38)
--- NOTE | 2022-10-13 18:10 | PC.NURSE ---
pt has had increased flatus today and did have a bowel movement; NG was removed and pt was started on clear liquids, which he is tolerating well; he has not complained of nausea; he was started on iv ativan in place of his home xanax dose; he reports that the ativan doses have helped tremendously
[2022-10-13 20:10] VITALS: BP 126/78; PULSE 87; RESP 18; TEMP 36.7; O2SAT 95
[2022-10-14] MEDS: LORazepam 2 MG/ML INJ 0.5 MG IV (02:09)
--- NOTE | 2022-10-14 10:10 | PC.NURSE ---
Pt is A&OX3, VSS, afebrile on RA. He denies abdominal pain this a.m. and is ambulating around the room. He denies n/v. He is anxious to discharge home. MD Mantilla notified and received order for general diet for breakfast and see how he tolerates this. He is cleared for discharge this a.m. at approximately 0900 a.m. and he verbalizes understanding of discharge instructions and states he will notifiy his provider if he has increased abdominal pain. No new medications, or follow up appointments at this time. He is escorted out of the hospital with and this RN for discharge home in private vehicle with all of his personal belongings at approximately 0945.
--- NOTE | 2022-10-20 11:26 | P.DS_ITS ---
History of Present Illness History of Present Illness Date Patient Seen: 10/14/22 Time Patient Seen: 08:00 Chief complaint: bowel obstruction Narrative: 47-year-old man history of prior abdominal surgeries who is admitted with a small-bowel obstruction. Discharge Providers Provider Date of admission: 10/11/22 03:59 Discharge Date: 10/14/22 Primary care physician: James Hernadez MD Consults: 10/11/22 04:00 Consult to General Surgery Urgent Comment: Consulting Provider: Kirby Agrawal Reason for consultation: SBO Has provider been notified: Yes Discharge provider: Dave Mantilla MD Summary Hospital Course Discharge Diagnosis: Small-bowel obstruction Hospital Course: 47-year-old man numerous prior abdominal surgeries who was admitted for a small- bowel obstruction. Obstruction resolved with conservative measures. At discharge he is tolerant of a regular diet has return of bowel function and pain is well controlled. He is stable for discharge. Exam Vital Signs (past 8 hours): Oxygen Delivery Method Room Air,CPAP Oxygen Flow Rate 0 Narrative Exam Narrative: General adult man alert oriented no acute distress Chest nonlabored respiration Abdomen soft nondistended nontender tender Objective Labs 10/12/22 06:03 10/12/22 05:00 PFSH Medical History Cough COVID-19 Social History household members: significant other Smoking Status: Never smoker alcohol intake: former Discharge Plan Discharge Plan Patient Disposition: Home Discharge orders & Medications Prescriptions: Continued ondansetron 4 mg tablet,disintegrating 4 mg PO Q6H PRN (Reason: nausea and vomiting) Qty: 10 0RF alprazolam 0.5 mg Tablet 0.5 mg PO BID PRN (Reason: anxiety) Follow up/Referrals: James Hernadez MD [Primary Care Provider] - Diet/Activity/Treatments Diet: Regular Skin/Wound/Dressing Care Report to your healthcare provider any signs of infection, such as:: increased pain Visit Report/Discharge Packet Stand Alone Forms: Patient Portal/API, Stroke Signs & Symptoms Discharge Data Primary Care Provider: James Hernadez
== END 2022-10-14 09:45 | disposition home or self-care (01) | DRG 390 ==
LOC: ED 04:00 → AC 04:00
PROVIDERS: Admitting Provider Surgery; Emergency Provider Emergency Medicine; Family Provider Specialist; PCP Specialist; Referring Provider Emergency Medicine; Visit Provider Surgery
DX: K56.609 Unspecified intestinal obstruction, unspecified as to partial versus complete obstruction (principal); Z20.822 Contact with and (suspected) exposure to COVID-19
CPT/HCPCS: 36415; 74018; 74177; 80048; 80053; 83605; 83690; 85025; 87635; 96374; 96375; 99221; 99231; 99284; C9803; J1170; J1885; J2060; J2405; J2765; Q9967

== ENCOUNTER 2024-11-23 13:20 | Emergency (ER) | payer OTHER, SELFPAY ==
[2022-10-11 04:39] VITALS: BMI 27.1
[2024-11-23 13:25] VITALS: BP 134/82; PULSE 103; RESP 17; TEMP 36.9; O2SAT 96; BMI 28.1
[2024-11-23 14:01] LABS: Add Manual Diff / Slide Review NO; Basophils Absolute Auto 100 /uL (0-100); Basophils Percent Auto 1.1 % (0-2); Eosinophils Absolute Auto 100 /uL (0-450); Eosinophils Percent Auto 1.2 % (2-4); Hematocrit 43.4 % (41-53); Lymphocytes Absolute Auto 3500 /uL (1100-4500); Lymphocytes Percent Auto 32.3 % (25-40); Mean Corpuscular HGB Conc 34.5 % (30-36); Mean Corpuscular Hemoglobin 30.4 PG (26-34); Mean Corpuscular Volume 88.2 fL (80-100); Monocytes Absolute Auto 800 /uL (0-900); Monocytes Percent Auto 7.8 % (3-14); Neutrophils Absolute Auto 6200 /uL (1500-7000); Neutrophils Percent Auto 57.6 % (50-75); Platelet Count 412 X10^3/uL (150-400); Red Blood Cell Count 4.93 X10^6/uL (4.5-5.9); Red Cell Distribution Width 13.2 % (11.6-14.8); White Blood Cell Count 10.8 X10^3/uL (4.5-11.0)
--- NOTE | 2024-11-23 14:06 | ED.MALEGU ---
HPI - Male Genitourinary General Chief complaint: Urogenital-Male Stated complaint: had a biopsy at 5 days ago/passing blood/fever Time Seen by Provider: 11/23/24 13:48 Source: patient and family Mode of arrival: Family Vehicle History of Present Illness HPI Narrative: Patient here with for complaints of suprapubic discomfort feeling chills and tired. Patient is postop day 4 status post transrectal ultrasound-guided prostate cancer. He did receive the report from his urologist at [facility]. Patient is not on any active cancer treatment. He has not been able to contact his urology providers at [facility]. Symptoms ongoing for the past couple of days. Patient is still urinating blood. No difficulties with bowel movements. Related Data Home Medications Medication Instructions Recorded Confirmed [id number] cap PO 11/23/24 11/23/24 12,000-38,000-60,000 unit capsule,delayed rel (Creon) tadalafil 5 mg tablet 5 mg PO DAILY 11/23/24 11/23/24 Allergies Allergy/AdvReac Type Severity Reaction Status Date / Time No Known Drug Allergies Allergy Verified 09/28/21 14:16 Review of Systems Review of Systems Narrative: GENERAL: Negative chills, fatigue, malaise, fever, sweats. HEENT: Negative sinus pain, ear pain, sore throat RESPIRATORY: Negative dyspnea, cough CARDIOVASCULAR: Negative chest pain, palpitations GASTROINTESTINAL: Negative vomiting, nausea, positive abdominal pain : Negative dysuria, frequency, positive hematuria MUSCULOSKELETAL: Negative muscle or bony pain SKIN: Negative rash, skin lesions NEUROLOGIC: Negative weakness, numbness ROS Unobtainable: All systems reviewed & are unremarkable except as noted in HPI and below Patient History Medical History Cough COVID-19 Social History household members: significant other Smoking Status: Never smoker alcohol intake: former Smoking Status: Never smoker alcohol intake frequency: a few times a month Exam Narrative Exam Narrative: GENERAL: in no distress, not toxic not dyspneic HEAD: Normocephalic. EYES: Pupils equal round NECK: Trachea midline. CARDIOVASCULAR: Regular rate and rhythm RESPIRATORY: Clear to auscultation. Breath sounds equal bilaterally. No wheezes, rales, or rhonchi. GASTROINTESTINAL: Abdomen soft, non-tender, abdomen is soft flat nontender no peritoneal signs no CVA tenderness no pain out of portion exam. No guarding no rebound. Bowel sounds are present BACK: No flank tenderness. NEURO: AOx4. Clear speech SKIN: Warm and dry PSYCH: Not anxious, is cooperative Initial Vital Signs Initial Vital Signs: Vital Signs Temperature 98.4 F 11/23/24 13:25 Pulse Rate 103 H 11/23/24 13:25 Respiratory Rate 17 11/23/24 13:25 Blood Pressure 134/82 11/23/24 13:25 Pulse Oximetry 96 11/23/24 13:25 Oxygen Delivery Method Room Air 11/23/24 13:25 Course Orders Ordered: ED Orders 11/23/24 13:45 Urine Microscopic Stat 11/23/24 13:52 BMP [Basic Metabolic Panel] Stat CBC Auto Diff [Complete Blood Count AUTO DIFF] Stat Vital Signs Vital signs: Vital Signs - 8 hr 11/23/24 13:25 Temperature 98.4 F Pulse Rate 103 H Respiratory Rate 17 Blood Pressure 134/82 Pulse Oximetry 96 Oxygen Delivery Method Room Air MDM - Male Genitourinary Lab Data 11/23/24 13:52 11/23/24 13:52 Labs: Lab Results 11/23/24 11/23/24 Range/Units 13:45 13:52 WBC 10.8 (4.5-11.0) X10^3/uL RBC 4.93 (4.5-5.9) X10^6/uL Hgb 15.0 (13.5-17.5) g/dL Hct 43.4 (41-53) % MCV 88.2 (80-100) fL MCH 30.4 (26-34) PG MCHC 34.5 (30-36) % RDW 13.2 (11.6-14.8) % Plt Count 412 H (150-400) X10^3/uL Neut % (Auto) 57.6 (50-75) % Lymph % (Auto) 32.3 (25-40) % [place] % (Auto) 7.8 (3-14) % Eos % (Auto) 1.2 L (2-4) % Baso % (Auto) 1.1 (0-2) % Neut # (Auto) 6200 (8373-0637) /uL Lymph # (Auto) 3500 (4367-0536) /uL [place] # (Auto) 800 (0-900) /uL Eos # (Auto) 100 (0-450) /uL Baso # (Auto) 100 (0-100) /uL Sodium 134 L (137-145) mmol/L Potassium 4.2 (3.4-5.1) mmol/L Chloride 98 (98-107) mmol/L Carbon Dioxide 25 (22-32) mmol/L BUN 21 H (9-20) mg/dL Creatinine 0.84 (0.66-1.25) mg/dL Estimated GFR > 60 (>60) mL/min BUN/Creatinine Ratio 25.0 H (6-22) Glucose 227 H (70-100) mg/dL Calcium 9.5 (8.4-10.2) mg/dL Urine RBC 30-100/hpf H (0-5/HPF) Urine WBC None seen (0-5/HPF) Ur Squamous Epith Cells None seen (0-5/HPF) Urine Bacteria None seen (None) Ur Culture Indicated? Cult not indicated Vol Urine Centrifuged 10ml (spun) [facility] Narrative Medical decision making narrative: Patient here with for complaints of suprapubic discomfort feeling chills and tired. Patient is postop day 4 status post transrectal ultrasound-guided prostate cancer. He did receive the report from his urologist at [facility]. Patient is not on any active cancer treatment. He has not been able to contact his urology providers at [facility]. Symptoms ongoing for the past couple of days. Patient is still urinating blood. No difficulties with bowel movements. After history and exam, CBC CMP urinalysis, [facility] urology consult [facility] Medical records reviewed: No recent visit for this complaint Differential considered: Includes but not limited to prostatitis postop wound infection UTI Lab Test results independently reviewed as above. Pertinent findings: WBC 10.8 hemoglobin 15 sodium 134 potassium 4.2 BUN 21 creatinine 0.84 GFR greater than 60 Imaging studies independently reviewed: None indicated at this time Consultations: 2:59 p.m.. Spoke with [facility] urology, Dr. Holman, we have reviewed patient's results, patient received Bactrim before the procedure Rocephin during the procedure and had 1 pill left over after the procedure. Patient heart rate now is 83. Patient may be discharged home no imaging or new antibiotics are indicated. Urology office will call patient on Monday, in 2 days for checkup. Re-evaluations: 3:05 p.m.. Updated patient my discussion with urology services and reviewed results of today's labs. They are reassuring. No new prescriptions are indicated. The office will be calling him on Monday for re-evaluation. He is pleased with the plan. Vital signs are reassuring. Return precautions reviewed. He desires discharge home. Discussion: Appropriate for discharge home. Exam is reassuring. Laboratory studies are reassuring. Urology service was contacted. They would like patient to go home and they will follow up with patient on Monday. No new prescriptions or orders indicated at this time according to urology. Diagnosis: Postoperative pain Discharge Plan Departure Patient Disposition: Home Clinical Impression: Post-operative pain Instructions: DI for Postoperative Pain Activity Restrictions/Additional Instructions: Your laboratory studies are reassuring. We did contact your urology services at [facility] and they feel you can go home today. No new antibiotics or prescriptions or imaging indicated. They will call you on Monday morning for re-evaluation. Please call them if you have not heard from them later in the day. Return if worse if any questions or concerns. Prescriptions: No Action Creon 12,000-38,000 -60,000 unit capsule,delayed release(DR/EC) PO tadalafil 5 mg tablet 5 mg PO DAILY Referrals: James Hernadez MD [Primary Care Provider] - Stand Alone Forms: Patient Portal/API/Survey
--- NOTE | 2024-11-23 14:08 | PC.NURSE ---
Pt reports biopsy of prostate 5 days ago and reports bleeding since then. Stating about a teaspoon everytime he urinates. Pt states he feels a twinge of pain in his groin but otherwise has no pain. Respirations regular and unlabored.
[2024-11-23 14:15] LABS: Bacteria Urine None Seen; Culture Indicated Urine Cult Not Indicated; RBC Urine 30-100/HPF (0-5/HPF); Squamous Epithelial Cell Urine None Seen (0-5/HPF); Urine Volume 10mL (spun); WBC Urine None Seen (0-5/HPF)
[2024-11-23 14:18] LABS: Blood Urea Nitrogen 21 mg/dL (9-20); Calcium 9.5 mg/dL (8.4-10.2); Carbon Dioxide 25 mmol/L (22-32); Chloride 98 mmol/L (98-107); Estimated Glomerular Filt Rate > 60 mL/min (>60); Glucose 227 mg/dL (70-100); HEMOLYSIS < 15 (0-50); Potassium 4.2 mmol/L (3.4-5.1); Sodium 134 mmol/L (137-145)
[2024-11-23 14:56] VITALS: PULSE 81; O2SAT 96
[2024-11-23 14:57] VITALS: BP 124/81; PULSE 81; O2SAT 97
[2024-11-23 15:00] VITALS: PULSE 80; O2SAT 95
== END 2024-11-23 15:21 | disposition home or self-care (01) ==
PROVIDERS: Emergency Provider Emergency Medicine; Family Provider Specialist; PCP Specialist
DX: G89.18 Other acute postprocedural pain (principal)
CPT/HCPCS: 36415; 80048; 81015; 85025; 87086; 99283

== ENCOUNTER 2024-12-03 16:46 | Emergency (ER) | payer OTHER, SELFPAY ==
[2022-10-11 04:39] VITALS: BMI 27.1
[2024-12-03] VITALS (15 sets, daily range): BP systolic 134–153; BP diastolic 74–98; PULSE 78–93; RESP 14–24; TEMP 36.6; O2SAT 93–97; BMI 27.1
[2024-12-03] MEDS: HYDROMORPHONE 1 MG INJ IV ×2 (18:00→21:07)
[2024-12-03] MEDS: ONDANSETRON 4 MG/2 ML INJ IV ×2 (18:00→21:02)
--- NOTE | 2024-12-03 18:31 | EKG_ITS ---
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
[2024-12-03 18:42] LABS: Add Manual Diff / Slide Review NO; Basophils Absolute Auto 100 /uL (0-100); Basophils Percent Auto 0.8 % (0-2); Eosinophils Absolute Auto 100 /uL (0-450); Eosinophils Percent Auto 0.7 % (2-4); Hematocrit 44.9 % (41-53); Hemoglobin 15.3 g/dL (13.5-17.5); Lymphocytes Absolute Auto 2500 /uL (1100-4500); Lymphocytes Percent Auto 13.4 % (25-40); Mean Corpuscular Volume 88.4 fL (80-100); Monocytes Absolute Auto 1500 /uL (0-900); Monocytes Percent Auto 7.8 % (3-14); Neutrophils Absolute Auto 14400 /uL (1500-7000); Neutrophils Percent Auto 77.3 % (50-75); Platelet Count 422 X10^3/uL (150-400); Red Blood Cell Count 5.08 X10^6/uL (4.5-5.9); Red Cell Distribution Width 13.6 % (11.6-14.8); White Blood Cell Count 18.6 X10^3/uL (4.5-11.0)
[2024-12-03 18:48] LABS: Alanine Aminotransferase 39 IU/L (<50); Albumin 4.7 g/dL (3.5-5.0); Albumin Globulin Ratio 1.4 (1.0-2.8); Alkaline Phosphatase 120 U/L (38-126); Aspartate Aminotransferase 44 IU/L (17-59); BUN Creatinine Ratio 22.6 (6-22); Bilirubin Total 0.8 mg/dL (0.2-1.3); Blood Urea Nitrogen 19 mg/dL (9-20); Calcium 9.3 mg/dL (8.4-10.2); Carbon Dioxide 27 mmol/L (22-32); Chloride 100 mmol/L (98-107); Estimated Glomerular Filt Rate > 60 mL/min (>60); Globulin 3.3 g/dL (1.7-4.1); Glucose 181 mg/dL (70-99); HEMOLYSIS 28 (0-50); Lipase 49 U/L (23-300); Potassium 4.4 mmol/L (3.4-5.1); Sodium 136 mmol/L (137-145)
--- NOTE | 2024-12-03 19:09 | PC.NURSE ---
Pt declined CT, states he's had too many CT's in his lifetime. ED physician aware. Pt thinks he has a SBO, states sometimes they clear on their own, without treatment.
--- NOTE | 2024-12-03 19:16 | PC.NURSE ---
Hx multiple abdomen surgeries, hx cancer (lumphoma, prostate and NETs)
[2024-12-03 19:51] LABS: Bacteria Urine Occasional (0-1); RBC Urine 1-5/HPF (0-5/HPF); Squamous Epithelial Cell Urine 0-1 /HPF (0-5/HPF); Urine Volume 10mL (spun); WBC Urine 0-1/HPF (0-5/HPF)
--- NOTE | 2024-12-03 20:14 | ED.ABDPAIN ---
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 Figueroa who retired recently, has seen Gastroenterology at [facility] Dr. Fredrick Bro who performed colonoscopy 1 year ago that was negative. More recently seeing assistant chief nursing officer Dr. Lutz in a red [facility] for the last 3 months, last CT scan abdomen and pelvis 3 months ago by kirill Fletcher radiology was unremarkable. Had been pursuing [facility] consultation for neuro endocrine specialist. More recently 2 weeks ago saw [facility] urology for prostate cancer confirmed by biopsy, but no treatment or other plan known so far. Complains of increasing abdominal pain, concerned about possible bowel obstruction. Patient is requesting MRI of the abdomen if imaging pursued. Related Data Home Medications Medication Instructions Recorded Confirmed evolocumab 140 mg/mL subcutaneous 140 mg SUBCUT Q2W 12/03/24 12/03/24 pen injector (Fam Bates) lorazepam 1 mg tablet 1 mg PO DAILY PRN Anxiety 12/03/24 12/03/24 metformin 500 mg tablet,extended 1,000 mg PO BID 12/03/24 12/03/24 release 24 hr pravastatin 20 mg tablet 20 mg PO DAILY 12/03/24 12/03/24 tadalafil 5 mg tablet 5 mg PO DAILY 12/03/24 12/03/24 Allergies Allergy/AdvReac Type Severity Reaction Status Date / Time No Known Drug Allergies Allergy Verified 09/28/21 14:16 Patient History Medical History Cough COVID-19 Social History household members: significant other Smoking Status: Never smoker alcohol intake: former Smoking Status: Never smoker alcohol intake frequency: a few times a month Exam Narrative Exam Narrative: GENERAL: Well-developed patient, in mild distress. Cooperative. HEAD: Atraumatic. Normocephalic. EYES: Pupils equal round, conjugate gaze. Extraocular motions intact. No scleral icterus. No injection or drainage. ENT: No obvious facial sweling or trauma. Normal phonation. Airway patent. NECK: Trachea midline. Non tender CARDIOVASCULAR: Regular rate and rhythm without murmurs, gallops, or rubs. RESPIRATORY: Clear to auscultation. Breath sounds equal bilaterally. No wheezes, rales, or rhonchi. GASTROINTESTINAL: Anterior abdominal wall with well-healed scars, nondistended, mild tenderness LLQ and RLQ. EXTREMITIES: No edema or joint tenderness. NEURO: AOx3. Motor functions grossly nonfocal SKIN: No rash or erythema of visible areas Initial Vital Signs Initial Vital Signs: Vital Signs Temperature 97.8 F 12/03/24 17:17 Pulse Rate 89 12/03/24 17:17 Respiratory Rate 16 12/03/24 17:17 Blood Pressure 150/98 H 12/03/24 17:17 Pulse Oximetry 97 12/03/24 17:17 Oxygen Delivery Method Room Air 12/03/24 17:17 Course Orders Ordered: Discontinued Medications Hydromorphone HCl (Hydromorphone 1 Mg Inj) 1 mg IV NOW ONE Stop: 12/03/24 17:31 Last Admin: 12/03/24 18:00 Dose: 1 mg Documented By: VIOLETTA Hydromorphone HCl (Hydromorphone 1 Mg Inj) 1 mg IV NOW ONE Stop: 12/03/24 21:05 Last Admin: 12/03/24 21:07 Dose: 1 mg Documented By: BECCA Ondansetron HCl (Ondansetron 4 Mg/2 Ml Inj) 4 mg IV NOW PRN PRN Reason: Nausea And Vomiting Last Admin: 12/03/24 21:02 Dose: 4 mg Documented By: Admin: 12/03/24 18:00 Dose: 4 mg Documented By: VIOLETTA Ondansetron HCl (Ondansetron 4 Mg Odt) 4 mg PO NOW PRN PRN Reason: Nausea And Vomiting Vital Signs Vital signs: Vital Signs - 8 hr 12/03/24 17:17 12/03/24 18:15 12/03/24 18:15 Temperature 97.8 F Pulse Rate 89 82 Respiratory Rate 16 15 Blood Pressure 150/98 H 139/88 Pulse Oximetry 97 97 Oxygen Delivery Method Room Air 12/03/24 18:30 12/03/24 18:30 12/03/24 19:00 Temperature Pulse Rate 80 78 Respiratory Rate 24 19 Blood Pressure 144/79 H Pulse Oximetry 95 95 Oxygen Delivery Method 12/03/24 19:00 12/03/24 19:25 12/03/24 19:25 Temperature Pulse Rate 82 Respiratory Rate 20 Blood Pressure 137/75 144/81 H Pulse Oximetry 96 Oxygen Delivery Method 12/03/24 19:30 12/03/24 19:30 12/03/24 20:00 Temperature Pulse Rate 84 84 Respiratory Rate 19 20 Blood Pressure 134/74 Pulse Oximetry 96 95 Oxygen Delivery Method 12/03/24 20:00 12/03/24 20:30 12/03/24 20:31 Temperature Pulse Rate 91 H 91 H Respiratory Rate 14 15 Blood Pressure 144/81 H Pulse Oximetry 96 97 Oxygen Delivery Method 12/03/24 20:31 12/03/24 21:00 12/03/24 21:00 Temperature Pulse Rate 85 Respiratory Rate 18 Blood Pressure 149/97 H 147/74 H Pulse Oximetry 96 Oxygen Delivery Method 12/03/24 21:30 12/03/24 21:30 12/03/24 22:00 Temperature Pulse Rate 93 H 86 Respiratory Rate 18 17 Blood Pressure 153/75 H Pulse Oximetry 95 95 Oxygen Delivery Method 12/03/24 22:00 12/03/24 22:30 12/03/24 22:30 Temperature Pulse Rate 89 Respiratory Rate 17 Blood Pressure 150/79 H 151/78 H Pulse Oximetry 93 Oxygen Delivery Method 12/03/24 23:00 12/03/24 23:00 12/03/24 23:30 Temperature Pulse Rate 83 85 Respiratory Rate 16 16 Blood Pressure 151/75 H Pulse Oximetry 95 95 Oxygen Delivery Method 12/03/24 23:30 Temperature Pulse Rate Respiratory Rate Blood Pressure 148/74 H Pulse Oximetry Oxygen Delivery Method MDM - Abdominal Pain Lab Data Attestation: I reviewed the patient's lab results. Lab results narrative: White blood cell count 15759, hemoglobin 15, platelets 422. Glucose 181. Renal function normal. Sodium 136, potassium 4.4 normal, serum CO2 27 normal. 12/03/24 18:10 12/03/24 18:10 Labs: Lab Results 12/03/24 12/03/24 Range/Units 18:10 19:25 WBC 18.6 H (4.5-11.0) X10^3/uL RBC 5.08 (4.5-5.9) X10^6/uL Hgb 15.3 (13.5-17.5) g/dL Hct 44.9 (41-53) % MCV 88.4 (80-100) fL MCH 30.0 (26-34) PG MCHC 34.0 (30-36) % RDW 13.6 (11.6-14.8) % Plt Count 422 H (150-400) X10^3/uL Neut % (Auto) 77.3 H (50-75) % Lymph % (Auto) 13.4 L (25-40) % [place] % (Auto) 7.8 (3-14) % Eos % (Auto) 0.7 L (2-4) % Baso % (Auto) 0.8 (0-2) % Neut # (Auto) 28872 H (2929-9303) /uL Lymph # (Auto) 2500 (5053-4694) /uL [place] # (Auto) 1500 H (0-900) /uL Eos # (Auto) 100 (0-450) /uL Baso # (Auto) 100 (0-100) /uL Sodium 136 L (137-145) mmol/L Potassium 4.4 (3.4-5.1) mmol/L Chloride 100 (98-107) mmol/L Carbon Dioxide 27 (22-32) mmol/L BUN 19 (9-20) mg/dL Creatinine 0.84 (0.66-1.25) mg/dL Estimated GFR > 60 (>60) mL/min BUN/Creatinine Ratio 22.6 H (6-22) Glucose 181 H (70-99) mg/dL Calcium 9.3 (8.4-10.2) mg/dL Total Bilirubin 0.8 (0.2-1.3) mg/dL AST 44 (17-59) IU/L ALT 39 (<50) IU/L Alkaline Phosphatase 120 (38-126) U/L Total Protein 8.0 (6.3-8.2) g/dL Albumin 4.7 (3.5-5.0) g/dL Globulin 3.3 (1.7-4.1) g/dL Albumin/Globulin Ratio 1.4 (1.0-2.8) Lipase 49 (23-300) U/L Urine RBC 1-5/hpf D (0-5/HPF) Urine WBC 0-1/hpf (0-5/HPF) Ur Squamous Epith Cells 0-1 /hpf (0-5/HPF) Urine Bacteria Occasional (0-1) (None) Vol Urine Centrifuged 10ml (spun) Point of care testing: Urine Dip Bedside Urine Glucose 1000 mg/dl Bedside Urine Bilirubin - Negative Bedside Urine Ketone + 15 Urine Specific [place] 1.015 Bedside Urine Occult Blood +++ Bedside Urine pH 6.5 Bedside Urine Protein +/- 15 Bedside Urine Urobilinogen 0.2 Bedside Urine Nitrite - Negative Bedside Urine Leukocytes - Negative Esterase ECG Data Attestation: I personally reviewed and interpreted this ECG as follows: Interpretation: Normal sinus rhythm with rate of 76, no obvious ST segment elevation or depression changes. NH 160, QRS 110. QTC 459. MDM Narrative Medical decision making narrative: 49-year-old male with complex medical history childhood non-Hodgkin's lymphoma excision of the small bowel, prior neuroendocrine tail of the pancreas and small bowel partial excision 2011 [place], multiple specialists being consulted, most recently GI at [facility], assistant chief nursing officer at [facility], some kind of neuro endocrine specialists [facility], and more recently a urologist at [facility], 2 weeks you had biopsy showing prostate cancer with no treatment plan yet delineated. Has increasing abdominal pain concern for bowel obstruction again. Labs pending, GFR favorable, patient requested MRI of the abdomen but this can not be performed at this hour. We will obtain CT abdomen and pelvis with IV and oral contrast. Leukocytosis 18 noted, renal function adequate. CT abdomen and pelvis with IV/oral contrast had been ordered prior, has not been done, apparently the patient is refusing. Discussion with patient and , then with nursing at bedside. Patient not wanting to get the CT scan, concerned about radiation. There is no MRI available at this hour as they preferred for abdominal imaging. I again advised we consider CT scan abdomen pelvis that had been ordered prior, to see if we can rule out SBO. They declined, then decided to leave. They left against medical advice. Against Medical Advice warnings given. Patient left with . Return precautions mentioned in discharge paperwork. Discharge Plan Departure Patient Disposition: Left Against Medical Advice Clinical Impression: Abdominal pain, Left against medical advice Activity Restrictions/Additional Instructions: You have abdominal pain, and clinical concern for possible bowel obstruction, CT abdomen and pelvis study was ordered which you had refused, and you are leaving against medical advice. There was no MRI available at this time. He would not want to have further evaluation and chose to leave against medical advice at this time. You have quite a complex abdominal and oncological history, with childhood non-Hodgkin's Burkitt's cancer, bowel surgeries early age, prior bowel obstruction, pancreatic neuroendocrine tumor, consultations and [facility] with a more recent diagnosis of prostate cancer awaiting follow up plan. Your last MRI reportedly was in the last week or so [facility]. However you do have new abdominal pain tonight. Based on your history I am certainly worried that you could have developed a bowel obstruction. CT scan abdomen and pelvis was ordered. You did not want to have the radiation of an abdominal CT scan. Risks of refusal for further evaluation tonight could lead to missed small bowel obstruction, portions of the bowel having injury, development of sepsis, in theory worsening condition and even leading to disability and . You were discharged per your request, and you are leaving the emergency department tonight against medical advice. Please return to this/nearest emergency department for any worsening of abdominal pain symptoms. Prescriptions: No Action pravastatin 20 mg tablet 20 mg PO DAILY lorazepam 1 mg tablet 1 mg PO DAILY PRN (Reason: Anxiety) metformin 500 mg tablet extended release 24 hr 1,000 mg PO BID tadalafil 5 mg tablet 5 mg PO DAILY Repatha SureClick 140 mg/mL pen injector 140 mg SUBCUT Q2W Referrals: James Hernadez MD [Primary Care Provider] - Stand Alone Forms: Patient Portal/API, Against Med. Advice (Gabonese)
--- NOTE | 2024-12-04 02:11 | PC.NURSE ---
Around 01:00 am, provider requests this RN's presence in pt's room d/t increased agitation related to disagreement over course of treatment. Pt otherwise calm and cooperative throughout visit for this RN. Pt presents w/c/o for bowel obstruction offering he's had them in the past and this episode of abdominal pain feels similar. Pt declines CT scan d/t noted cancer history and radiation treatment. Pt asks provider to consider NG tube placement w/o imaging. Provider declines. Pt asks provider to consider OBS admit, provider declines w/o further imaging or full workout. Pt asks nursing why we cannot perform an MRI. This RN explains MRI is not an option at this time. Pt is visibly upset but remains calm and cooperative w/this RN. Pt provided TRACE paperwok. Unable to obtain DC VS.
== END 2024-12-04 01:30 | disposition left against medical advice (07) ==
PROVIDERS: Family Medicine; Emergency Provider Emergency Medicine; Family Provider Specialist; PCP Specialist
DX: R10.30 Lower abdominal pain, unspecified (principal); Z53.29 Procedure and treatment not carried out because of patient's decision for other reasons; Z90.49 Acquired absence of other specified parts of digestive tract; Z85.72 Personal history of non-Hodgkin lymphomas
CPT/HCPCS: 36415; 80053; 81003; 81015; 83690; 85025; 87086; 93005; 96374; 96375; 96376; 99284; J1171; J2405